=== PATIENT | male | born 1955 | race Caucasian/White ===

== ENCOUNTER 2021-12-05 15:09 | Outpatient (CLI) | payer MEDICARE, BC, SELFPAY ==
--- OUTSIDE RECORDS SUMMARY | 2021-12-05 07:28 | XMS_ITS | Clinical Summary ---
:1955 Author Organization [facility] [place] [address] Care Team Providers Name Role Phone Geovany Hermosillo MD Primary Care Provider Allergies No known active allergies Medications Medication Sig Dispensed Refills Start Date End Date Status IBUPROFEN 200 MG TAB PRN 0 Active ASPIRIN 81 MG TAB, take 1 tablet 0 Active DELAYED RELEASE (81mg) by oral route once daily lisinopril (PRINIVIL; TAKE 1 TABLET 30 tablet 0 01/21/2011 Active ZESTRIL) 40 mg tablet (40 MG) BY ORAL ROUTE ONCE DAILY omeprazole (PRILOSEC) TAKE 1 CAPSULE 30 capsule 0 01/21/2011 Active 20 mg BY MOUTH ONCE capsuleIndications: DAILY BEFORE A Esophageal reflux MEAL. simvastatin (ZOCOR) 40 TAKE 1 TABLET BY 30 tablet 0 01/21/2011 Active mg tabletIndications: MOUTH ONCE DAILY Mixed hyperlipidemia WITH EVENING MEAL. CPAP autoCPAP, heated 1 unit 0 10/14/2012 Ac tive humidifier, mask, headgear, filters and tubing. Pressure: 4-15cm/H2O Length of Need: 99 Active Problems Problem Noted Date Elevated PSA 02/14/2019 DOMONIQUE 04/30/2006 AHI-76 10/14/2012 DOMONIQUE 04/30/2006 AHI-76 10/14/2012 Benign neoplasm of colon 01/03/2009 Overview: Colonoscopy 12/2008 polyp repeat in 5 ye ars Morbid obesity 10/05/2008 Unspecified essential hypertension 07/28/2007 Impaired fasting glucose 07/28/2007 Esophageal reflux 07/28/2007 Special screening for malignant neoplasm of prostate 0 07/28/2007 Mixed hyperlipidemia 04/30/2006 Resolved Problems Problem Noted Date Resolved Date Routine general medical examination at [facility] 008 10/05/2008 facility Unspecified sleep apnea 07/28/2007 10/14/2012 Obesity, unspecified 04/30/2006 10/05/2008 Immunizations Name Administration Dates Next Due Influenza, IIV3 (Age >=3 years) 01/22/2009, 01/30/2006 Td (Age >=7 Years) 08/21/1998 Tdap 07/28/2007 Family History Medical History Relation Name Comments Heart Disease Brother [place] @ 47 yo Heart Disease Father heart attack 198 8 Hypertension Mother Relation Name Status Comments Brother Father Mother Alive Social History Tobacco Use Types Packs/Day Years Used Date Never Smoker Smokeless Tobacco: Never Used Tobacco Cessation: Counseling Given: Yes Alcohol Use Standard Drinks/Week Comments Not Currently 0 (1 standard drink = 0.6 oz pure alcoho l) Minimal Sex Assigned at Date Recorded Not on file Obstetrics History Last Filed Vital Signs Vital Sign Reading Time Taken Comments Blood Pressure 150/88 01/09/2020 1:03 PM ELECTRIC ACCOUNTING MACHINE OPERATOR Pulse 87 01/09/2020 1:03 PM ELECTRIC ACCOUNTING MACHINE OPERATOR Temperature 36.8 ??C (98.3 ??F) 10/14/2012 11:32 AM CDT Respiratory Rate 18 01/09/2020 1:03 PM ELECTRIC ACCOUNTING MACHINE OPERATOR Oxygen Saturation 97% 01/09/2020 1:03 PM ELECTRIC ACCOUNTING MACHINE OPERATOR Inhaled Oxygen - - Concentration Weight 174.5 kg (384 lb 01/09/2020 1:03 PM Pt weighed w ith shoes 12.8 oz) ELECTRIC ACCOUNTING MACHINE OPERATOR on. Height 180.7 cm (5' 11.16) 10/14/2012 11:32 AM CDT Body Mass Index 53.43 10/14/2012 11:32 AM CDT Plan of Treatment Health Maintenance Due Date Last Done Comments COVID-19 vaccine series (#1) 04/08/1956 Depression screening for age 12+ 1966 BMI (ht and wt on same day) for 1972 age 18+ Hepatitis C screening for age 0810/06/1972 18-79 Zoster (shingles) series for age 0810/06/2004 50+ (1 of 2) Colonoscopy through age 75 01/22/2014 01/22/2009, 9 Lipids for age 45-75 05/03/2015 05/02/2010, 04/19/2009, 09/27/2008, Additional history exists Tetanus booster 07/27/2017 07/28/2007, 08/21/1998 Medicare Wellness for age 65+ 10/07/2019 Pneumococcal series for age 65+ (1 10/07/2019 - PCV) Influenza for age 65+ 10/24/2021 01/22/2009, 01/30/2006 Tdap Completed 07/28/2007 Results Not on filefrom Last 3 Months Insurance Payer Benefit Plan / Subscriber ID Effective Dates Phone Addre ss Type Group BLUE CROSS MR BLUE CROSS [id number] 2019-Present [address] [address] [place], [place] [id number] Care Teams Computer Publisher Relationship Specialty Start Date End Date Geovany Hermosillo MD PCP - General Family Practice 10/14/12
[2021-12-05 09:00] LABS: Albumin* 4.5 g/dL (3.3-5.0); Chloride* 99 mmol/L (96-114); Potassium* 4.8 mmol/L (3.6-5.1); Sodium* 141 mmol/L (135-149)
[2021-12-05 09:02] LABS: Carbon Dioxide* 31 mmol/L (20-32); Cholesterol* 171 mg/dL (90-199); Creatinine* 1.3 mg/dL (0.5-1.5); Estimated Glomerular Filt Rate 60 ml/min
[2021-12-05 09:03] LABS: Alanine Aminotransferase* 18 U/L (4-50); Alkaline Phosphatase* 58 U/L (40-150); Aspartate Amino Transferase* 24 U/L (12-35); Bilirubin Total* 1.1 mg/dL (0.1-1.5); Blood Urea Nitrogen* 25 mg/dL (7-30); Calcium* 9.6 mg/dL (8.4-10.6); Glucose* 140 mg/dL (60-115); Total Protein* 7.3 g/dL (6.0-8.3); Triglycerides* 210 mg/dL (40-149)
[2021-12-05 09:04] LABS: HDL Cholesterol* 28 mg/dL (>=40); LDL Cholesterol Calculated 101 mg/dL (<100)
[2021-12-05 09:19] LABS: Creatinine Urine 118.7 mg/dL
[2021-12-05 09:25] LABS: Microalbumin Creatinine Ratio 0 mg/g (0-30); Microalbumin Urine < 1 mg/dL
[2021-12-05 09:39] LABS: PSA Screen* < 0.06 ng/mL (0.10-4.00)
== END 2021-12-05 15:10 | disposition home or self-care (01) ==
PROVIDERS: PCP Family Medicine; Visit Provider Family Medicine
DX: Z00.00 Encounter for general adult medical examination without abnormal findings (principal); E11.9 Type 2 diabetes mellitus without complications; E78.5 Hyperlipidemia, unspecified; C61 Malignant neoplasm of prostate; I10 Essential (primary) hypertension; Z12.5 Encounter for screening for malignant neoplasm of prostate
CPT/HCPCS: 80053; 80061; 82043; 82570; 84153

== ENCOUNTER 2022-06-19 07:16 | Outpatient (CLI) | payer MEDICARE, BC, SELFPAY | END 2022-06-19 07:17 | disposition home or self-care (01) | LOC: OP CLINIC 07:18 | PROVIDERS: PCP Family Medicine; Visit Provider Surgery | DX: Z12.11 Encounter for screening for malignant neoplasm of colon (principal); K63.5 Polyp of colon; Z86.010 Personal history of colon polyps | CPT/HCPCS: 45385; 88305; 99153; J1200; J2250; J3010 ==

== ENCOUNTER 2023-04-14 07:51 | Outpatient (CLI) | payer MEDICARE, BC, SELFPAY ==
--- OUTSIDE RECORDS SUMMARY | 2023-04-15 06:18 | XMS_ITS | Clinical Summary ---
Author Name Unknown Organization [facility] Address [place], [place] [address] Care Team Providers Care Industrial Safety And Health Specialist Name Role Phone Geovany Hermosillo MD Primary Care Provider [phone] Allergies No known active allergies Medications Medication Sig Dispensed Refills Start Date End Date Status IBUPROFEN 200 MG TAB PRN 0 Acti ve ASPIRIN 81 MG TAB, DELAYED RELEASE take 1 tablet (81mg) by oral route once daily 0 Active lisinopril (PRINIVIL; ZESTRIL) 40 mg tablet TAKE 1 TABLET (40 MG) BY ORAL ROUTE ONCE DAILY 30 tablet 0 01/21/2011 Active omeprazole (PRILOSEC) 20 mg capsuleIndications:Eso phageal reflux TAKE 1 CAPSULE BY MOUTH ONCE DAILY BEFORE A MEAL. 30 capsule 0 01/21/2011 Active simvastatin (ZOCOR) 40 mg tabletIndications:Mixe d hyperlipidemia TAKE 1 TABLET BY MOUTH ONCE DAILY WITH EVENING MEAL. 30 tablet 0 01/21/2011 Active CPAP autoCPAP, heated humidifier, mask, headgear, filters and tubing. Pressure: 4-15cm/H2O Length of Need: 99 1 unit 0 10/14/2012 Active Active Problems Problem Noted Date Diagnosed Date Elevated PSA 02/14/2019 DOMONIQUE 04/30/2006 AHI-76 10/14/2012 DOMONIQUE 04/30/2006 AHI-76 10/14/2012 Benign neoplasm of colon 01/03/2009 Overview: Colonoscopy 12/2008 polyp repeat in 5 years Morbid obesity 10/05/2008 Unspecified essential hypertension 07/28/2007 Impaired fasting glucose 07/28/2007 Esophageal reflux 07/28/2007 Special screening for malignant neoplasm of pros richards 07/28/2007 Mixed hyperlipidemia 04/30/2006 Resolved Problems Problem Noted Date Diagnosed Date Resolved Date Routine general medical exam ination at a health care facility 07/28/2007 10/05/2008 Unspecified sleep apnea 07/28/200709/24 Obesity, unspecified 04/30/2006 009 Immunizations Name Administration Dates Next Due Influenza, IIV3 (Age >=3 years) 01/22/2009,01/30 Td (Age >=7 Years) 08/21/1998 Tdap 07/28/2007 Family History Medical History Relation Name Comments Heart Disease Brother [place] @ 47 yo Heart Disease Father heart attack 1 988 Hypertension Mother Relation Name Status Comments Brother Father Mother Alive Social History Tobacco Use Types Packs/Day Years Used Date Smoking Tobacco: Never Smokeless Tobacco: Never Tobacco Cessation:Counseling Given: Yes Alcohol Use Standard Drinks/Week Comments Not Currently 0 (1 standard drink = 0.6 oz pur e alcohol) Minimal Sex and Gender Information Value Date Recorded Sex Assigned at Not on file Gender Identity Not on file Sexual Orientation Not on file Obstetrics History Last Filed Vital Signs Vital Sign Reading Time Taken Comments Blood Pressure 150/88 01/09/2020 1:03 PM PYROTECHNICS PRESS TENDER Pulse 87 01/09/2020 1:03 PM PYROTECHNICS PRESS TENDER Temperature 36.8 ??C (98.3 ??F) 10/14/2012 1 1:32 AM CDT Respiratory Rate 18 01/09/2020 1:03 PM PYROTECHNICS PRESS TENDER Oxygen Saturation 97% 01/09/2020 1:0 3 PM PYROTECHNICS PRESS TENDER Inhaled Oxygen Concentration - - Weight 174.5 kg (384 lb 12.8 oz) 01/09/2020 1:03 PM PYROTECHNICS PRESS TENDER Pt weighed with shoes on. Height 180.7 cm (5' 11.16) 10/14/2012 11:32 AM CDT Body Mass Index 53.43 10/14/2012 11:32 AM CDT Plan of Treatment Health Maintenance Due Date Last Done Comments COVID-19 vaccine series (#1) 04/08/1956 Depression screening for age 12+ 1966 BMI (ht and wt on same day) for age 18+ 1972 Hepatitis C screening for ag e 18-79 1972 Zoster (shingles) series for age 50+ (1 of 2) 2004 Colonoscopy through age 75 01/22/2014 01/22/2009, Lipids for age 45-75 05/03/2015 05/02/2010, 04/19/2009, 09/27/2008, Additional history exists Tetanus booster 07/27/2017 07/28/2007, 08/21/1998 Medicare Wellness for age 65+ 10/07/2019 Pneumococcal series for age 65+ (1 of 1 - PCV) 10/07/2019 Influenza for age 65+ 10/24/2022 01/22/2009, 006 Tdap Completed 07/28/2007 Care Teams Industrial Safety And Health Specialist Relationship Specialty Start Date End Date Geovany Hermosillo MD PCP - General Family Practice 10/14/12
== END 2023-04-14 07:52 | disposition home or self-care (01) ==
LOC: NFLDREF 04-15 06:16
PROVIDERS: PCP Family Medicine; Referring Provider Family Medicine; Visit Provider Family Medicine
DX: E11.9 Type 2 diabetes mellitus without complications (principal); E78.5 Hyperlipidemia, unspecified; C61 Malignant neoplasm of prostate; R97.20 Elevated prostate specific antigen [PSA]
CPT/HCPCS: 80053; 80061; 82043; 82570; G0103

== ENCOUNTER 2023-07-01 13:18 | Outpatient (CLI) | payer MEDICARE, BC, SELFPAY ==
--- OUTSIDE RECORDS SUMMARY | 2023-07-01 13:22 | XMS_ITS | Clinical Summary ---
Author Name Unknown Organization [facility] Address [place], [place] [address] Care Team Providers Care Green Building Materials Designer Name Role Phone Geovany Hermosillo MD Primary Care Provider [phone] Allergies No known active allergies Medications Medication [...] History Relation Name Comments Heart Disease Brother [place] @ 47 yo Heart Disease Father heart [...] Comments Blood Pressure 150/88 01/09/2020 1:03 PM ATTENDANT LODGING FACILITIES Pulse 87 01/09/2020 1:03 PM ATTENDANT LODGING FACILITIES Temperature 36.8 ??C (98.3 ??F) 10/14/2012 1 1:32 AM CDT Respiratory Rate 18 01/09/2020 1:03 PM ATTENDANT LODGING FACILITIES Oxygen Saturation 97% 01/09/2020 1:0 3 PM ATTENDANT LODGING FACILITIES Inhaled Oxygen Concentration - - Weight 174.5 kg (384 lb 12.8 oz) 01/09/2020 1:03 PM ATTENDANT LODGING FACILITIES Pt weighed with shoes on. Height 180.7 cm (5' 11.16) 10/14/2012 11:32 AM CDT Body Mass Index 53.43 10/14/2012 11:32 AM CDT Plan of Treatment Health Maintenance Due Date Last Done Comments Depression screening for age 12+ 1966 BMI [...] 65+ (1 of 1 - PCV) 10/07/2019 COVID-19 vaccine series (1 - 2022-24 season) 2022 Influenza for age 65+ 10/25/2023 01/22/2009, 006 Tdap Completed 07/28/2007 Procedures Procedure Name Priority Date/Time Associated Diagnosis Comments LIPID PANEL W REFLEX MEASURED LDL Routine 05/02/2010 7:59 AM ATTENDANT [employer]ODGING [employer]ACILIT[employer] HYPERLIPIDEMIA MIXED from Last 3 Months or Most Recently Relevant to Health Maintenance Results * (ABNORMAL) LIPID PANEL W REFLEX MEASURED LDL (05/02/2010 7:59 AM ATTENDANT [employer]GING [employer]ITIES) CHOLESTEROL,TOTAL 169 110 - 199 mg/dL [facility] TRIGLYCERIDES 134 <150 mg/dL [facility] HDL CHOLESTEROL 34(L) >40 mg/dL [facility] CHOL/HDL RATIO 4.97(H) <4.51 [facility] LDL CHOLESTEROL 108 <131 mg/dL [facility] PATIENT STATUS Fasting [facility] Blood specimen (specimen) BLOOD SPECIMEN / Unknown 05/02/2010 7:59 AM ATTENDANT [employer] 05/02/2010 7:53 AM ATTEND[employer] Ferny Piña MD CHEMISTRY [facility] [address] [place] [address] from Last 3 Months or Most Recently Relevant to Health Maintenance Care Teams Green Building Materials Designer Relationship Specialty Start Date End Date Geovany Hermosillo MD PCP - General Family Practice 10/14/12
== END 2023-07-01 13:19 | disposition home or self-care (01) ==
LOC: NFLDREF 13:19
PROVIDERS: PCP Family Medicine; Visit Provider Family Medicine
DX: I10 Essential (primary) hypertension (principal)
CPT/HCPCS: 80048

== ENCOUNTER 2023-07-14 07:26 | Day surgery (SDC) | payer MEDICARE, BC, SELFPAY ==
[2023-07-14] VITALS (23 sets, daily range): BP systolic 104–162; BP diastolic 63–105; PULSE 60–83; RESP 14–22; TEMP 35.7–36.7; O2SAT 91–97; BMI 51.0
--- OUTSIDE RECORDS SUMMARY | 2023-07-14 07:28 | XMS_ITS | Clinical Summary ---
Author Name Unknown Organization [facility] Address [place], [place] [address] Care Team Providers Care Director Underwriter Sales Name Role Phone Geovany Hermosillo MD Primary Care Provider [phone] Allergies No known active allergies Medications Medication [...] History Relation Name Comments Heart Disease Brother [place] @ 47 yo Heart Disease Father heart [...] Comments Blood Pressure 150/88 01/09/2020 1:03 PM DETECTIVE NARCOTICS AND VICE Pulse 87 01/09/2020 1:03 PM DETECTIVE NARCOTICS AND VICE Temperature 36.8 ??C (98.3 ??F) 10/14/2012 1 1:32 AM CDT Respiratory Rate 18 01/09/2020 1:03 PM DETECTIVE NARCOTICS AND VICE Oxygen Saturation 97% 01/09/2020 1:0 3 PM DETECTIVE NARCOTICS AND VICE Inhaled Oxygen Concentration - - Weight 174.5 kg (384 lb 12.8 oz) 01/09/2020 1:03 PM DETECTIVE NARCOTICS AND VICE Pt weighed with shoes on. Height 180.7 [...] REFLEX MEASURED LDL Routine 05/02/2010 7:59 AM DETECTIVE NARCOTICS AND VICE HYPERLIPIDEMIA MIXED from Last 3 Months or Most Recently Relevant to Health Maintenance Results * (ABNORMAL) LIPID PANEL W REFLEX MEASURED LDL (05/02/2010 7:59 AM DETECTIVE NARCOTICS AND VICE) CHOLESTEROL,TOTAL 169 110 - 199 mg/dL [facility] TRIGLYCERIDES 134 <150 mg/dL [facility] HDL CHOLESTEROL 34(L) >40 mg/dL [facility] CHOL/HDL RATIO 4.97(H) <4.51 [facility] LDL CHOLESTEROL 108 <131 mg/dL [facility] PATIENT STATUS Fasting [facility] Blood specimen (specimen) BLOOD SPECIMEN / Unknown 05/02/2010 7:59 AM DETECTIVE NARCOTICS AND VICE 05/02/2010 7:53 AM DETECTIVE NARCOTICS AND VICE Ferny Piña MD CHEMISTRY [facility] [address] [place] [address] from Last 3 Months or Most Recently Relevant to Health Maintenance Care Teams Director Underwriter Sales Relationship Specialty Start Date End Date Geovany Hermosillo MD PCP - General Family Practice 10/14/12
[2023-07-14] MEDS: CELECOXIB 200 MG CAPSULE PO (07:40)
[2023-07-14] MEDS: OXYCODONE (CR) 10 MG TAB.ER.12H PO (07:40)
[2023-07-14] MEDS: ACETAMINOPHEN 500 MG TABLET 1000 MG PO ×3 (07:40→20:13)
[2023-07-14] MEDS: LACTATED RINGERS 1000 ML 1,000 ML 100 ML IV ×2 (08:09→10:10)
[2023-07-14] MEDS: SODIUM CHLORIDE 0.9 % (FLUSH) 10 ML SYRINGE IVF (08:09)
--- NOTE | 2023-07-14 08:31 | SUR.PREOP ---
TIME?OUT:?0838 PT/RN/MDA?VERIFICATION?OF?SURGICAL?SITE Left Knee,?PROCEDURE Nerve Block,?AND?CONSENT OBTAINED?PRIOR?TO?INVASIVE?PROCEDURE.
[2023-07-14] MEDS: fentaNYL 100 MCG/2 ML inj IVP (08:39)
[2023-07-14] MEDS: MIDAZOLAM HCL 1 MG/ML inj IVP (08:39)
--- NOTE | 2023-07-14 08:45 | W.PM.NB ---
Nerve Block Nerve Block Time Seen by Provider: 08:42 Date Seen: 07/14/23 Type of block requested by surgeon for post-operative analgesia: adductor canal Side: left Time out performed: Yes Verification of patient name: Yes Verification of date of : Yes Site marking: site marked Name of person performing procedure: Jose Continuous monitoring Was continuous monitoring of O2 sat, B/P, electronic device monitor, recorded every 15 minutes?: Yes Procedure Checklist: sterile prep, needles and gloves Ultrasound guided. Images saved: Yes Medications given in 5ml increments after negative aspiration: Ropivicaine %: 0.5 mL: 20 Needle gauge: 20 Decadron (mg): 10 Precedex (mcg): 25 Patient tolerated procedure well: Yes Additional comments: Needle noted adjacent to nerve Block Charges Block Charge (with Pro Fee): Femoral Nerve Use of Ultrasound Machine for Block: Yes- US Guidance/pain block
--- NOTE | 2023-07-14 08:46 | W.PM.NB ---
Nerve Block Nerve Block Time Seen by Provider: 08:42 Date Seen: 07/14/23 Type of block requested by surgeon for post-operative analgesia: geniculars Side: left Time out performed: Yes Verification of patient name: Yes Verification of date of : Yes Site marking: site marked Name of person performing procedure: Jose Continuous monitoring Was continuous monitoring of O2 sat, B/P, special education kindergarten teacher, recorded every 15 minutes?: Yes Procedure Checklist: sterile prep, needles and gloves Medications given in 5ml increments after negative aspiration: Ropivicaine %: 0.5 mL: 9 Needle gauge: 25 Patient tolerated procedure well: Yes Block Charges Block Charge (with Pro Fee): Genicular Nerve Block Use of Ultrasound Machine for Block: No
--- NOTE | 2023-07-14 08:46 | W.ANESCHARGE ---
Anesthesia Charges Start Date/Time Anesthesia Start Date: 07/14/23 Anesthesia Start Time: 09:25 Stop Date/Time Anesthesia Stop Date: 07/14/23 Anesthesia Stop Time: 12:32
[2023-07-14] MEDS: CEFAZOLIN 2 GM INJ IVP (10:03)
[2023-07-14] MEDS: TRANEXAMIC ACID 100 MG/ML INJ 1000 MG IV (10:03)
--- NOTE | 2023-07-14 11:30 | XR_ITS ---
Patient: YOSELYN TOVAR Facility:?[facility] Patient ID:?[id number] Site Patient ID:?[id number]. Site :?[id number] Study:?XRay-Knee Left POST OP-07/14/2023 12:49:57 PM Ordering Physician:JESSEE Final Report: INDICATION: Postop left total knee. TECHNIQUE: Two views of the left knee. FINDINGS: New left TKA. Components appear well seated. Expected adjacent postop soft tissue air. Dictated by Boston Bobby MD @ 07/15/2023 8:27:26 AM Signed by:?Boston Bobby MD @07/15/2023 8:27:26 AM (Electronic Signature)
--- NOTE | 2023-07-14 11:32 | PM.ORPRC ---
Procedure Note Date of procedure: 07/14/23 Procedure: PREOPERATIVE DIAGNOSIS: Left knee osteoarthritis POSTOPERATIVE DIAGNOSIS: Left knee osteoarthritis NAME OF OPERATION: Left total knee arthroplasty SURGEON: Marv Chau MD CURATORIAL ASSISTANT: Lianet Oviedo PA-C, Elsie Zaragoza PA-C ANESTHESIA: Spinal ESTIMATED BLOOD LOSS: 5 mL COMPLICATIONS: None SPECIMENS: None DRAINS: None PREOPERATIVE ANTIBIOTICS: Ancef 3 grams, antibiotic impregnated cement IMPLANTS: 1. J&J Attune revision CRS # 8 posterior stabilized femur with a 14 mm x 50 mm cemented stem 2. # 9 revision CRS fixed-bearing tibia with a 14 mm x 50 mm cemented stem 3. # 8 posterior stabilized, 5 mm fixed-bearing polyethylene 4. 41 patella INDICATIONS: The patient is a 67-year-old with a longstanding history of severe, unrelenting left knee pain secondary to end-stage (grade IV) left knee osteoarthritis. Despite appropriate nonoperative management, including activity modification, anti-inflammatories, [id number] pain medication, bracing, physical therapy, and injections they continue to have pain and disability. Operative intervention was offered. The risks, benefits and expected outcomes were discussed in detail. These included but were not limited to: Infection, bleeding, injury to blood vessel or nerve, venous thromboembolism. All questions were answered to their satisfaction. Use of an sales service assistant was necessary throughout the case for patient positioning and safety, soft tissue retraction, and closure. A modifier 22 should be added to this case. The patient's weight of 170 kg with a BMI of 51 made exposure very difficult. This required the use of 2 assistants and stems on both sides of the joint to reduce the risk of aseptic loosening. Therefore, there was significant increase in time and cost to complete the case. PROCEDURE: Spinal anesthesia was administered. The patient was placed supine on the operating table. The sales service assistant made sure the patient was positioned appropriately. The lower extremity was prepped and draped in the usual sterile fashion. The limb was exsanguinated with the Erick bandage. The pneumatic tourniquet was inflated to 300 mmHg. A standard anterior incision was made with the knee in flexion. Subcutaneous dissection was sharply taken through fascial layer #1. Full-thickness medial and lateral flaps were elevated. The sales service assistant retracted the soft tissues and protected them throughout the case. A standard subvastus approach was made. The patella was everted. The infrapatellar fat pad was preserved. The menisci and cruciate ligaments were sharply d?brided. Marginal osteophytes were d?brided with the rongeur. The drill was used to penetrate the femoral canal. The canal was aspirated and irrigated with pulse lavage. The intramedullary femoral guide was placed for a 5-degree valgus cut, removing 10 mm off the distal femur. The saw was used to make the cut. Whitesides line and the trans epicondylar axis were marked. The femoral sizing guide was pinned onto the distal femur. Three degrees of external rotation nicely parallels the transepicondylar axis. Pins were placed for posterior referencing. The four-in-one cutting guide was pinned onto the distal femur. The anterior, posterior, and chamfer cuts were made. The sales service assistant protected the collateral ligaments. The revision trial was placed. The box cuts were made. The drill was used x2. The stemmed, boxed trial was placed and was an excellent fit. Attention was then turned to the proximal tibia. The extramedullary tibial guide was placed for a neutral varus/valgus cut with 5 degrees of posterior slope, removing 2 mm based off the medial tibial surface. The sales service assistant protected the collateral ligaments and the neurovascular bundle. The saw was used to make the cut. Trial components were placed. The knee was nicely balanced in both flexion and extension. The trial components were removed. The tray was placed in appropriate rotation, parallel to our tibial cutting pins. It was pinned by the sales service assistant and the drill x2 was used. The stemmed tibial trial was placed. The punch was used. The tray was removed. The punch was used again. Attention was then turned to the patella. Minto patellar thickness was 27 mm. The lobster claw resection guide was used with the 9.5 mm smooth. The saw was used to make the cut. Drill holes were made by the sales service assistant. The trial was placed and was an excellent fit. Cancellous surfaces were irrigated with pulse lavage and thoroughly dried by the sales service assistant. We cemented the tibial component, then the femoral component. We impacted the 5 mm polyethylene onto the tibial tray. The knee was brought into full extension. We then cemented the patellar component. Excessive cement was removed. The cement was allowed to harden. The knee was taken through a range of motion and was found to be nicely balanced in both flexion and extension. The patella tracks centrally. The sales service assistant did a three minute dilute Betadine solution soak. The sales service assistant irrigated the wound with 3 liters of normal saline via pulse lavage. The sales service assistant reapproximated the extensor mechanism with #1 Vicryl in an interrupted [id number] fashion. The sales service assistant then ran the extensor mechanism with a #1 PDO Stratafix. The sales service assistant closed the subcutaneous tissues with a 3-0 Stratafix and the skin with a running 3-0 Stratafix in a subcuticular fashion. Glue was used to seal the skin. The sales service assistant placed a dry dressing. Sponge and needle counts were correct x2. The patient tolerated the procedure well. There were no apparent complications. They were carefully transferred to the hospital bed and taken to the postanesthesia care unit in satisfactory condition. PLAN: The patient will be mobilized with physical therapy. Aspirin will be used for DVT prophylaxis. They will be discharged to home once medically appropriate.
--- NOTE | 2023-07-14 12:34 | W.ANESCHARGE ---
Anesthesia Charges Start Date/Time Anesthesia Start Date: 07/14/23 Anesthesia Start Time: 09:25 Stop Date/Time Anesthesia Stop Date: 07/14/23 Anesthesia Stop Time: 12:32
--- NOTE | 2023-07-14 14:46 | P.IMCN_ITS ---
Date of Consult Consult date: 07/14/23 Requesting Physician: Orthopedics Primary Care Provider: Geovany Hermosillo MD Consult Narrative Narrative: HOSPITALIST CONSULT NAME OF OPERATION: Left total knee arthroplasty SURGEON: Marv Chau MD ANESTHESIA: Spinal ESTIMATED BLOOD LOSS: 5 mL COMPLICATIONS: None The hospital medicine team was asked by the orthopedic surgery team to manage the patient's diabetes, HTN. There have been no perioperative complications. Updated and reviewed the active medical problems, past medical history, past surgical history, social history, allergies and medications in our electronic EMR. PHYSICAL EXAM: CODE STATUS: FULL CODE CONSTITUTIONAL: Conversive, good historian. A/O. Knows setting and context. VITAL SIGNS: see record. HEENT: Normocephalic, atraumatic. PERRL, EOMI, conjunctivae pink, no scleral icterus. Ears and nose externally normal. Pharynx normal. NECK: No JVD. No carotid bruit, no thyromegaly, no adenopathy. CHEST: Clear to auscultation bilaterally HEART: S1 and S2 normal. ABDOMEN: Flat, soft, nontender. Normal bowel sounds. Moderately obese. EXTREMITIES: No edema. MUSCULOSKELETAL: SDI intact to the left knee NEURO: Cranial nerves intact. Mentation normal. Normal affect. SKIN: No rashes, petechiae, concerning changes PSYCHIATRIC: Mentation normal. INVESTIGATIONS: EMR Reviewed; Pre-OP Reviewed DISPOSITION: DVT: Agree with Ortho team decision GI: PO intake [facility] Medical History (Updated 07/14/23 @ 15:14 by Kimberley Galaviz MD) Morbid obesity with BMI of 50.0-59.9, adult ?E66.01 - Morbid (severe) obesity due to excess calories (ICD-10) ?Z68.43 - Body mass index [BMI] 50.0-59.9, adult (ICD-10) Polyp of colon (03/12/11) ?K63.5 - Polyp of colon (ICD-10) Malignant neoplasm of prostate ?C61 - Malignant neoplasm of prostate (ICD-10) Hyperlipidemia ?E78.5 - Hyperlipidemia, unspecified (ICD-10) Obstructive sleep apnea (03/03/11) ?G47.33 - Obstructive sleep apnea (adult) (pediatric) (ICD-10) Sprain of ankle ?S93.409A - Sprain of unspecified ligament of unspecified ankle, initial encounter (ICD-10) Surgical History (Updated 07/14/23 @ 14:56 by Kimberley Galaviz MD) Status post total left knee replacement ?Z96.652 - Presence of left artificial knee joint (ICD-10) S/P vasectomy ?Z98.52 - Vasectomy status (ICD-10) Social History (Updated 04/20/23 @ 10:08 by Esther Roberts ~ CT[facility]) Narrative: SOCIAL HISTORY: 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 He is not sexually active. He went back to lifting weights and doing walking over the past month but he admits there was a long period of time where he was not doing these things. Exercises not been great in the last year. He still enjoys woodworking and does quite a bit of this. He has a close friend who has a heated groin space that he has his equipment in. They both enjoy woodworking. HABITS: No tobacco, alcohol, recreational drug use. FAMILY HISTORY: Unchanged. Mother at 85. Father of myocardial infarction in his 60s. Grandparents with heart problems. Brother with non fatal myocardial infarction in his 40s. He was smoker. What is your current living situation?: I presently have a place to live Problems where you live: no known problems In the past 12 months, utilities in danger of being shut off: no In past 12 months, lack of transportation kept you from medical appts, meetings, work, or getting things needed for daily living: no In the past 12 mos, have been you worried that your food would run out before you had money to buy more?: never true In the past 12 mos, the food you bought just didn't last and you didn't have money to buy more?: never true Smoking Status: Never smoker How often do you have a drink containing alcohol: never AUDIT-C Alcohol total score: 0 Non-prescribed substance use: denies use Caffeine: Yes How often does anyone, including family, friends and others, physically hurt you : never How often does anyone, including family, friends and others, insult or talk down to you: never How often does anyone, including family, friends and others, threaten you with harm: never How often does anyone, including family, friends and others, scream or curse at you: never Little interest or pleasure in doing things: not at all Feeling down, depressed, or hopeless: not at all Meds Home Medications and Allergies Home Medications Medication Instructions Recorded Confirmed Type aspirin 81 mg tablet,delayed 81 mg PO QDAY 10/30/21 07/14/23 History release Allergies Allergy/AdvReac Type Severity Reaction Status Date / Time No Known Allergies Allergy Unknown Verified 07/14/23 07:51 Exam Const: Vital Signs, click to edit/add: Vital Signs - 24 hr 07/14/23 08:04 07/14/23 08:39 07/14/23 08:45 Temperature 98.1 F Pulse Rate 80 80 78 Respiratory Rate 16 16 16 Blood Pressure 153/100 H 162/100 H 126/100 H Pulse Oximetry 94 96 96 Oxygen Delivery Me thod Room Air Nasal Cannula Nasal Cannula Oxygen Flow Rate 2 2 07/14/23 12:27 07/14/23 12:35 07/14/23 12:40 Temperature 97.4 F L Pulse Rate 78 75 72 Respiratory Rate 18 20 18 Blood Pressure 109/70 104/70 110/70 Pulse Oximetry 94 93 93 Oxygen Delivery Me thod Room Air Room Air Room Air Oxygen Flow Rate 07/14/23 12:45 07/14/23 12:50 07/14/23 12:55 Temperature 97.3 F L Pulse Rate 74 67 65 Respiratory Rate 20 22 18 Blood Pressure 108/64 119/67 120/73 Pulse Oximetry 92 93 94 Oxygen Delivery Me thod Room Air Room Air Room Air Oxygen Flow Rate 07/14/23 13:00 07/14/23 13:10 07/14/23 13:15 Temperature 97.4 F L 96.4 F L 96.6 F L Pulse Rate 67 68 63 Respiratory Rate 20 14 14 Blood Pressure 121/71 125/63 110/79 Pulse Oximetry 94 93 94 Oxygen Delivery Me thod Room Air Room Air Oxygen Flow Rate 07/14/23 13:30 07/14/23 13:45 07/14/23 14:00 Temperature 97.3 F L 96.8 F L 96.2 F L Pulse Rate 63 60 66 Respiratory Rate 16 16 Blood Pressure 112/69 124/68 118/71 Pulse Oximetry 92 91 91 Oxygen Delivery Me thod Room Air Room Air Room Air Oxygen Flow Rate Assessment and Plan Assessment and plan (1) Status post total left knee replacement: Problem comment: 07/14/23 [facility] medicine team is happy to follow the patient through to discharge. We will hold antihypertensive postoperatively. We expect a benign postoperative course. Status: Acute (2) DOMONIQUE on CPAP: Problem comment: -continue home use. Status: Acute (3) Type 2 diabetes mellitus: Problem comment: A1C 6.8 on 04/14/23 diet controlled ACHS accuchecks Status: Acute (4) Hypertension: Problem comment: -lisinopril and HCTZ therapy + aspirin -will hold post-op day 1 Status: Acute (5) Gastroesophageal reflux: Status: Acute (6) Morbid obesity with BMI of 50.0-59.9, adult: Status: Acute
--- NOTE | 2023-07-14 16:45 | PC.NURSE ---
Shift Summary: Patient pleasant and cooperative, worked with PT and is up in chair. Vitals stable and WNL, maintaining o2 >90% on RA. Denies pain, ice over left knee. Dressing dry and intact. Denies nausea, has not had meal yet just liquids. Offered bathroom however patient states it is normal for him to go long periods before needing to void. Lung sounds clear.
[2023-07-14] MEDS: OXYCODONE 5 MG TABLET PO (17:12)
[2023-07-14] MEDS: LACTATED RINGERS 1000 ML 1,000 ML 75 ML IV (17:13)
[2023-07-14] MEDS: CEFAZOLIN 3 GM in 0.9 % SODIUM CHLORIDE Mini-bag 100 ML IVPB (17:45)
[2023-07-14] MEDS: SENNOSIDES 1 TAB TABLET 2 TAB PO (20:13)
[2023-07-14] MEDS: ASPIRIN 81 MG TABLET EC PO (20:14)
[2023-07-14] MEDS: SIMVASTATIN 40 MG TABLET PO (20:14)
[2023-07-15] MEDS: CEFAZOLIN 3 GM in 0.9 % SODIUM CHLORIDE Mini-bag 100 ML IVPB (01:12)
[2023-07-15 01:20] VITALS: BP 95/66; PULSE 69; RESP 18; TEMP 36.5; O2SAT 92
[2023-07-15 03:00] VITALS: BP 119/69; PULSE 65; RESP 18; TEMP 36.4; O2SAT 92
[2023-07-15] MEDS: ACETAMINOPHEN 500 MG TABLET 1000 MG PO ×2 (03:00→08:56)
[2023-07-15 06:22] LABS: Basophils Percent Auto 0.1 % (0.0-3.0); Hematocrit 43.7 % (37.0-53.0); Hemoglobin* 14.3 gm/dL (13.5-17.5); Immature Granulocytes Pct Auto 0.1 %; Lymphocytes Percent Auto 7.4 % (20-44); Mean Corpuscular HGB Conc 33 gm/dL (32-36); Mean Corpuscular Hemoglobin 29 pg (26-34); Mean Corpuscular Volume 90 fL (80-100); Monocytes Percent Auto 8.7 % (0.0-11.0); Neutrophils Percent Auto 83.7 % (42.0-72.0); Platelet Count* 228 K/uL (140-440); RDW Coefficient of Variation % 14.2 % (11.5-15.5); Red Blood Count 4.86 m/uL (4.30-5.90); White Blood Count* 11.72 K/uL (4.50-11.00)
[2023-07-15 06:32] LABS: Slide Review Reflex No
[2023-07-15 06:36] LABS: INR 1.02 (0.91-1.10)
[2023-07-15 06:37] LABS: Sodium* 137 mmol/L (135-149)
[2023-07-15 06:38] LABS: Potassium* 4.3 mmol/L (3.6-5.1)
[2023-07-15 06:41] LABS: Blood Urea Nitrogen* 30 mg/dL (7-30); Creatinine* 1.3 mg/dL (0.5-1.5); Est. Creatinine Clearance* 59.69; Estimated Glomerular Filt Rate 60 ml/min
--- NOTE | 2023-07-15 06:45 | PC.NURSE ---
19-07: pleasant and cooperative. SBA with gb and walker. rating pain 2-3/10, tolerable per pt. VSS. Dressing CDI, active ice on.
[2023-07-15 07:44] VITALS: BP 139/75; PULSE 79; RESP 14; TEMP 37.4; O2SAT 94
[2023-07-15] MEDS: OXYCODONE 5 MG TABLET PO (08:03)
--- NOTE | 2023-07-15 08:14 | PM.ORPN ---
Subjective Subjective Time Seen by Provider: 08:14 Date Seen: 07/15/23 Principal diagnosis: Status post left knee replacement Interval history: Indra is doing well. He is ambulating well in the room this morning. his dressing is not sticking well. He will discharge to home today. He tolerated oxycodone well. He uses a CPAP machine when sleeping. Ortho Exam Narrative Exam Narrative: Alert and oriented x3. Patient is in no acute distress. Converses without labored breathing. Hearing is grossly intact. Ambulates with a Walker. Examination of the left knee shows the dressing is not adhered to his leg at the top and bottom. Dressing is replaced. No erythema or warmth or sign of infection. Minimal edema. CMS intact left lower extremity. Good quad strength. Able to straight leg raise in a supine position. I watched him ambulate in his room and this went very well for him. Calves are soft and nontender. Const Vital Signs, click to edit/add: Vital Signs - 24 hr 07/14/23 08:39 07/14/23 08:45 07/14/23 12:27 Temperature 97.4 F L Pulse Rate 80 78 78 Pulse Rate [Pulse Oximeter] Respiratory Rate 16 16 18 Blood Pressure 162/100 H 126/100 H 109/70 Blood Pressure [Left Arm] Pulse Oximetry 96 96 94 Oxygen Delivery Method Nasal Cannula Nasal Cannula Room Air Oxygen Flow Rate 2 2 07/14/23 12:35 07/14/23 12:40 07/14/23 12:45 Temperature 97.3 F L Pulse Rate 75 72 74 Pulse Rate [Pulse Oximeter] Respiratory Rate 20 18 20 Blood Pressure 104/70 110/70 108/64 Blood Pressure [Left Arm] Pulse Oximetry 93 93 92 Oxygen Delivery Method Room Air Room Air Room Air Oxygen Flow Rate 07/14/23 12:50 07/14/23 12:55 07/14/23 13:00 Temperature 97.4 F L Pulse Rate 67 65 67 Pulse Rate [Pulse Oximeter] Respiratory Rate 22 18 20 Blood Pressure 119/67 120/73 121/71 Blood Pressure [Left Arm] Pulse Oximetry 93 94 94 Oxygen Delivery Method Room Air Room Air Room Air Oxygen Flow Rate 07/14/23 13:10 07/14/23 13:15 07/14/23 13:30 Temperature 96.4 F L 96.6 F L 97.3 F L Pulse Rate 68 63 63 Pulse Rate [Pulse Oximeter] Respiratory Rate 14 14 Blood Pressure 125/63 110/79 112/69 Blood Pressure [Left Arm] Pulse Oximetry 93 94 92 Oxygen Delivery Method Room Air Room Air Oxygen Flow Rate 07/14/23 13:45 07/14/23 14:00 07/14/23 14:30 Temperature 96.8 F L 96.2 F L 96.7 F L Pulse Rate 60 66 73 Pulse Rate [Pulse Oximeter] Respiratory Rate 16 16 16 Blood Pressure 124/68 118/71 138/81 Blood Pressure [Left Arm] Pulse Oximetry 91 91 93 Oxygen Delivery Method Room Air Room Air Room Air Oxygen Flow Rate 07/14/23 15:00 07/14/23 15:15 07/14/23 16:32 Temperature 96.8 F L 96.8 F L Pulse Rate 83 63 Pulse Rate [Pulse Oximeter] Respiratory Rate 16 18 Blood Pressure 142/105 H 120/66 Blood Pressure [Left Arm] Pulse Oximetry 91 91 95 Oxygen Delivery Method Room Air Room Air Room Air Oxygen Flow Rate 07/14/23 17:08 07/14/23 18:05 07/14/23 19:40 Temperature 97.2 F L 97.2 F L 97.3 F L Pulse Rate 72 77 Pulse Rate [Pulse Oximeter] 80 Respiratory Rate 18 18 18 Blood Pressure 145/87 H 124/74 Blood Pressure [Left Arm] 122/82 Pulse Oximetry 92 97 96 Oxygen Delivery Method Room Air Room Air Room Air Oxygen Flow Rate 07/14/23 23:00 07/14/23 23:00 07/14/23 23:00 Temperature 97.4 F L Pulse Rate Pulse Rate [Pulse Oximeter] 74 74 Respiratory Rate 18 18 18 Blood Pressure Blood Pressure [Left Arm] 132/81 Pulse Oximetry 94 94 Oxygen Delivery Method Room Air Room Air Oxygen Flow Rate 07/15/23 01:20 07/15/23 03:00 Temperature 97.7 F 97.6 F Pulse Rate Pulse Rate [Pulse Oximeter] 69 65 Respiratory Rate 18 18 Blood Pressure Blood Pressure [Left Arm] 95/66 119/69 Pulse Oximetry 92 92 Oxygen Delivery Method CPAP CPAP Oxygen Flow Rate Assessment and Plan Assessment and plan (1) Status post total left knee replacement: Problem details: 07/14/23 [facility] Status: Acute Assessment and Plan: Plan for discharge is today to home if they meet discharge criteria. DVT prophylaxis includes aspirin 81 mg twice daily x1 month, Compression stockings as needed for swelling. Frequent ambulation, every hour throughout the day. Remove dressing in 1 week. Observe wound and phone Orthopedics with any questions or concerns Return to clinic in 1 week for a wound check Return to clinic in 6 weeks with surgeon Minimize narcotic use. Wean off and discontinue soon as possible. Activities as tolerated. No strenuous activity. Outpatient physical therapy as scheduled. Ice and elevate the operative extremity. No restriction on ice.
[2023-07-15] MEDS: SENNOSIDES 1 TAB TABLET 2 TAB PO (08:56)
[2023-07-15] MEDS: OMEPRAZOLE 20 MG CAPSULE DR PO (08:56)
[2023-07-15] MEDS: ASPIRIN 81 MG TABLET EC PO (08:57)
--- NOTE | 2023-07-15 11:10 | PC.NURSE ---
Discharge: Patient pleasant and cooperative. Patient vitally stable, lungs clear, BS WNL, IV removed, catheter intact. Patient rates left knee pain 3/10, 10 mg oxy given once prior to therapy. Left knee dressing C/D/I, no pitting edema present. Patient 1 assist, walker, gb. Patient urinating well and tolerating regular diet. Patient signed belongings sheet and discharge form. Patient and spouse had no further questions regarding discharge information. Patient left the floor to home by wheelchair with belongings at 1107.
== END 2023-07-15 11:07 | disposition home or self-care (01) ==
LOC: OR 07:26 → MEDSURG 07:28
PROVIDERS: PCP Family Medicine; Visit Provider Orthopaedic Surgery
PROC: (CPT 27447; principal; 2023-07-14 09:15)
DX: M17.12 Unilateral primary osteoarthritis, left knee (principal); G89.18 Other acute postprocedural pain; I10 Essential (primary) hypertension; E11.9 Type 2 diabetes mellitus without complications; E66.01 Morbid (severe) obesity due to excess calories; Z68.43 Body mass index [BMI] 50.0-59.9, adult; E78.5 Hyperlipidemia, unspecified; G47.33 Obstructive sleep apnea (adult) (pediatric); K21.9 Gastro-esophageal reflux disease without esophagitis
CPT/HCPCS: 27447; 01402; 36415; 64447; 64454; 73560; 76942; 82565; 82962; 84132; 84295; 84520; 85025; 85610; 97110; 97116; 97161; 97165; 97530; 97535; A9270; C1776; J0690; J1100; J2250; J2405; J2704; J2795; J3010; J7120

== ENCOUNTER 2023-07-27 00:39 | Outpatient (CLI) | payer MEDICARE, BC, SELFPAY ==
--- OUTSIDE RECORDS SUMMARY | 2023-08-01 10:41 | XMS_ITS | Clinical Summary ---
Author Organization [facility] Address [place], [place] [address] Care Team Providers Care Water Hydrant Installer Name Role Phone Geovany Heromsillo MD Primary Care Provider [phone] Allergies No known active allergies Medications Medication [...] History Relation Name Comments Heart Disease Brother [place] @ 47 yo Heart Disease Father heart [...] Comments Blood Pressure 150/88 01/09/2020 1:03 PM COGNOS BI DEVELOPER Pulse 87 01/09/2020 1:03 PM COGNOS BI DEVELOPER Temperature 36.8 ??C (98.3 ??F) 10/14/2012 1 1:32 AM CDT Respiratory Rate 18 01/09/2020 1:03 PM COGNOS BI DEVELOPER Oxygen Saturation 97% 01/09/2020 1:0 3 PM COGNOS BI DEVELOPER Inhaled Oxygen Concentration - - Weight 174.5 kg (384 lb 12.8 oz) 01/09/2020 1:03 PM COGNOS BI DEVELOPER Pt weighed with shoes on. Height 180.7 [...] REFLEX MEASURED LDL Routine 05/02/2010 7:59 AM COGNOS BI DEVELOPER HYPERLIPIDEMIA MIXED from Last 3 Months or Most Recently Relevant to Health Maintenance Results * (ABNORMAL) LIPID PANEL W REFLEX MEASURED LDL (05/02/2010 7:59 AM COGNOS BI DEVELOPER) CHOLESTEROL,TOTAL 169 110 - 199 mg/dL [facility] TRIGLYCERIDES 134 <150 mg/dL [facility] HDL CHOLESTEROL 34(L) >40 mg/dL [facility] CHOL/HDL RATIO 4.97(H) <4.51 [facility] LDL CHOLESTEROL 108 <131 mg/dL [facility] PATIENT STATUS Fasting [facility] Blood specimen (specimen) BLOOD SPECIMEN / Unknown 05/02/2010 7:59 AM COGNOS BI DEVELOPER 05/02/2010 7:53 AM [employer]GNOS BI DEVELOPER Ferny Piña MD CHEMISTRY [facility] [address] [place], [place] [id number] from Last 3 Months or Most Recently Relevant to Health Maintenance Care Teams Water Hydrant Installer Relationship Specialty Start Date End Date Geovany Hermosillo MD PCP - General Family Practice 10/14/12
== END 2023-07-27 00:40 | disposition home or self-care (01) ==
LOC: AMB 08-01 10:39
PROVIDERS: PCP Family Medicine; Visit Provider Family Medicine
DX: R53.1 Weakness (principal)
CPT/HCPCS: A0998

== ENCOUNTER 2023-07-28 07:10 | Emergency (ER) | payer MEDICARE, BC, SELFPAY ==
[2023-07-28] VITALS (24 sets, daily range): BP systolic 92–111; BP diastolic 50–62; PULSE 70–92; RESP 24; TEMP 36.9; O2SAT 90–96; BMI 48.8
--- NOTE | 2023-07-28 07:16 | CRLHL7_ITS ---
For Patients: As a result of the Century Cures Act, medical imaging exams and procedure reports are released immediately into your electronic medical record. You may view this report before your referring provider. If you have questions, please contact your health care provider. INDICATION: Clinical signs and symptoms of an acute stroke COMPARISON: None TECHNIQUE: CT examination of the head was performed as axial sections without intravenous contrast. Images were obtained from the vertex of the skull through the skull base. Please note that all CT scans at this facility use dose modulation, iterative reconstruction, and/or weight-based dosing when appropriate to reduce radiation dose to as low as reasonably achievable. FINDINGS: The brain shows no sign of mass lesion, mass effect, hemorrhage, or edema. There are involutional changes. There is mild cortical atrophy and there is mild white matter disease. There is no hydrocephalus. The visualized portions of the orbits are normal in appearance. The osseous structures are normal in appearance with no sign of abnormality in the skull base or calvarium. I discussed the above findings with Dr. Pryor at 7:42 a.m. on July 28, 2023 IMPRESSION: Involutional changes. No acute-appearing findings. Please note that all CT scans at this facility use dose modulation, iterative reconstruction, and/or weight-based dosing when appropriate to reduce radiation dose to as low as reasonably achievable. Dictated by Armen Egan MD @ 07/28/2023 7:42:57 AM (Electronically Signed)
--- NOTE | 2023-07-28 07:23 | ED.GENADULT ---
HPI - General Adult General Chief complaint: Altered Mental Status <Chey Pryor MD - Last Filed: 07/29/23 23:58> Stated complaint: slurring words,2 week post knee surgery <Chey Pryor MD - Last Filed: 07/29/23 23:58> Time Seen by Provider: 07/28/23 07:23 <Chey Pryor MD - Last Filed: 07/29/23 23:58> Source: patient and family <Chey Pryor MD - Last Filed: 07/29/23 23:58> Mode of arrival: ambulatory <Chey Pryor MD - Last Filed: 07/29/23 23:58> History of Present Illness HPI narrative: Patient route to CT via triage prior to initial physician encounter. Family reporting he awoke with slurred speech, disorientation. Last known normal 9:30 p.m. when he went to bed last night. I could not start my exam until patient had been in the ED almost 30 minutes due to the fact that maneuvering him to and from CT following his total knee arthroplasty was a bit cumbersome. Patient awoke at about 515 this morning and was apparently texting his son for ice, patient does not really remember this. Son presents with him to the ED and can confirm this. Patient's awoke at around 6:00 a.m. and found confused, had difficulty with word finding but also seemed to be slightly slurring his speech. She reports that he has had a very poor appetite and has been very fatigued the last few days. He had an uncomplicated left total knee arthroplasty 2 weeks ago. Has been participating in physical therapy as recommended. Patient does not note any difficulty moving his limbs specifically, reports that he is feeling quite a bit better now that he is in the ED. Did not try any home treatments prior to coming to the ED. No prior history of stroke, he is on twice daily aspirin for DVT prophylaxis but no other blood thinners. Denies headache or other neurological changes. No chest pain, syncope, dizziness. No prior history of similar symptoms. No recent falls or injury. No fevers. Denies dysuria or localizing symptoms of infection. Past medical history notable for hypertension, obesity. He has gzp-vydldgl-brvfqlkaj diabetes but is attempting diet control 1st. He also has a history of sleep apnea and reports compliance with CPAP. Home meds twice daily aspirin, Tylenol, hydrochlorothiazide, lisinopril simvastatin and omeprazole. Still has some senna and oxycodone post surgery. Allergies none known. ROS is notable for the neurological and generalized changes as above, otherwise he denies times 12 systems. <Chey Pryor MD - Last Filed: 07/29/23 23:58> Related Data Home medications: Home Medications ?Medication ?Instructions ?Recorded ?Confirmed aspirin 81 mg tablet,delayed 81 mg PO QDAY 10/30/21 07/29/23 release Previous Rx's ?Medication ?Instructions ?Recorded hydrochlorothiazide 25 mg tablet 25 mg PO DAILY #90 tabs 04/20/23 lisinopril 40 mg tablet 40 mg PO DAILY #90 tabs 04/20/23 omeprazole 20 mg capsule,delayed 20 mg PO DAILY #90 caps 04/20/23 release simvastatin 40 mg tablet 40 mg PO .Bedtime #90 tabs 04/20/23 acetaminophen 500 mg tablet 500 - 1,000 mg (1 - 2 x 500 mg) PO 07/14/23 Q6H PRN #100 tabs aspirin 81 mg tablet,delayed 81 mg PO BID 30 days #60 tabs 07/14/23 release sennosides 8.6 mg tablet (Senna 8.6 - 17.2 mg (1 - 2 x 8.6 mg) PO 07/14/23 Lax) BID PRN constipation #100 tabs oxycodone 5 mg tablet 2.5 - 5 mg (0.5 - 1 x 5 mg) PO 07/24/23 Q4-6H PRN Pain #42 tabs <Chey Pryro MD - Last Filed: 07/29/23 23:58> Allergies/adverse reactions: Allergies Allergy/AdvReac Type Severity Reaction Status Date / Time No Known Allergies Allergy Unknown Verified 07/29/23 13:58 <Chey Pryor MD - Last Filed: 07/29/23 23:58> [facility] Medical History: Medical History Unspecified essential hypertension (07/28/07) ?I10 - Essential (primary) hypertension (ICD-10) Special screening for malignant neoplasm of prostate (07/28/07) ?Z12.5 - Encounter for screening for malignant neoplasm of prostate (ICD-10) Mixed hyperlipidemia (04/30/06) ?E78.2 - Mixed hyperlipidemia (ICD-10) Impaired fasting glucose (07/28/07) ?R73.01 - Impaired fasting glucose (ICD-10) Elevated PSA (02/14/19) ?R97.20 - Elevated prostate specific antigen [PSA] (ICD-10) Benign neoplasm of colon (01/03/09) ?D12.6 - Benign neoplasm of colon, unspecified (ICD-10) Morbid obesity with BMI of 50.0-59.9, adult ?E66.01 - Morbid (severe) obesity due to excess calories (ICD-10) ?Z68.43 - Body mass index [BMI] 50.0-59.9, adult (ICD-10) Polyp of colon (03/12/11) ?K63.5 - Polyp of colon (ICD-10) Malignant neoplasm of prostate ?C61 - Malignant neoplasm of prostate (ICD-10) Hyperlipidemia ?E78.5 - Hyperlipidemia, unspecified (ICD-10) Obstructive sleep apnea (03/03/11) ?G47.33 - Obstructive sleep apnea (adult) (pediatric) (ICD-10) Sprain of ankle ?S93.409A - Sprain of unspecified ligament of unspecified ankle, initial encounter (ICD-10) <Chey Pryor MD - Last Filed: 07/29/23 23:58> Surgical History: Surgical History Status post total left knee replacement (07/14/23) ?Z96.652 - Presence of left artificial knee joint (ICD-10) S/P vasectomy ?Z98.52 - Vasectomy status (ICD-10) <Chey Pryor MD - Last Filed: 07/29/23 23:58> Social History: Social History Narrative: SOCIAL HISTORY: 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 He is not sexually active. He went back to lifting weights and doing walking over the past month but he admits there was a long period of time where he was not doing these things. Exercises not been great in the last year. He still enjoys woodworking and does quite a bit of this. He has a close friend who has a heated groin space that he has his equipment in. They both enjoy woodworking. HABITS: No tobacco, alcohol, recreational drug use. FAMILY HISTORY: Unchanged. Mother at 85. Father of myocardial infarction in his 60s. Grandparents with heart problems. Brother with non fatal myocardial infarction in his 40s. He was smoker (cigars), quit 1983. What is your current living situation?: I presently have a place to live Problems where you live: no known problems In the past 12 months, utilities in danger of being shut off: no In past 12 months, lack of transportation kept you from medical appts, meetings, work, or getting things needed for daily living: no In the past 12 mos, have been you worried that your food would run out before you had money to buy more?: never true In the past 12 mos, the food you bought just didn't last and you didn't have money to buy more?: never true Smoking Status: Former smoker What tobacco products do you use: cigars Do you use any of these nicotine containing products: None Second hand tobacco smoke exposure: No How often do you have a drink containing alcohol: never AUDIT-C Alcohol total score: 0 Non-prescribed substance use: denies use Caffeine: Yes How often does anyone, including family, friends and others, physically hurt you: never How often does anyone, including family, friends and others, insult or talk down to you: never How often does anyone, including family, friends and others, threaten you with harm: never How often does anyone, including family, friends and others, scream or curse at you: never Little interest or pleasure in doing things: not at all Feeling down, depressed, or hopeless: not at all <Chey Pryor MD - Last Filed: 07/29/23 23:58> Exam Const: Vital Signs, click to edit/add: Vital Signs - 24 hr 07/28/23 07:15 Temperature 98.5 F Pulse Rate [Pulse Oximeter] 92 Respiratory Rate 24 Blood Pressure [Ri ght Upper Arm] 111/62 Pulse Oximetry 92 Oxygen Delivery Me thod Room Air <Chey Pryor MD - Last Filed: 07/29/23 23:58> Vital Signs, click to edit/add: Vital Signs - 24 hr 07/28/23 07:15 Temperature 98.5 F Pulse Rate [Pulse Oximeter] 92 Respiratory Rate 24 Blood Pressure [[facility] Upper Arm] 111/62 Pulse Oximetry 92 Oxygen Delivery Me thod Room Air <Pedro Pablo Adame MD - Last Filed: 07/30/23 14:03> Documenting provider has reviewed patient's vital signs: yes <Chey Pryor MD - Last Filed: 07/29/23 23:58> Common normals: no apparent distress and alert <Chey Pryor MD - Last Filed: 07/29/23 23:58> General appearance: cooperative and well kempt <Chey Pryor MD - Last Filed: 07/29/23 23:58> Orientation/consciousness: Yes awake <Chey Pryor MD - Last Filed: 07/29/23 23:58> Other: His speech may be minimally slurred with a faint possible droop to the left corner of the mouth that was not reproducible on all parts of exam. Good word finding and descriptions for me on initial survey. No obvious confusion. <Chey Pryor MD - Last Filed: 07/29/23 23:58> HENMT: Common normals: normocephalic, moist oral mucous membranes and oropharynx normal <Chey Pryor MD - Last Filed: 07/29/23 23:58> Head and scalp: normocephalic <Chey Pryor MD - Last Filed: 07/29/23 23:58> Mouth: oral and palatal mucosa normal <Chey Pryor MD - Last Filed: 07/29/23 23:58> Throat: posterior oropharynx normal <Chey Pryor MD - Last Filed: 07/29/23 23:58> Eye: Common normals: PERRL, EOMs intact bilaterally and conjunctivae normal <Chey Pryor MD - Last Filed: 07/29/23 23:58> General eye: normal appearance of both eyes <MD Ilya Norton Last Filed: 07/29/23 23:58> Conjunctiva: conjunctiva(e) normal <MD Ilya Norton Last Filed: 07/29/23 23:58> Pupil: PERRL <MD Ilya Norton Last Filed: 07/29/23 23:58> Neck & C-Spine: Common normals: full ROM and no lymphadenopathy <MD Ilya Norton Last Filed: 07/29/23 23:58> Resp: Common normals: normal respiratory effort, no use of accessory muscles and clear to auscultation bilaterally <MD Ilya Norton Last Filed: 07/29/23 23:58> Effort & inspection: able to speak in complete sentences <MD Ilya Norton Last Filed: 07/29/23 23:58> Auscultation: clear to auscultation bilaterally <MD Ilya Norton Last Filed: 07/29/23 23:58> Cardio: Common normals: regular rate, regular rhythm, S1 normal heart sound, S2 normal heart sound and no murmurs <MD Ilya Norton Last Filed: 07/29/23 23:58> Rate: regular rate <MD Ilya Norton Last Filed: 07/29/23 23:58> Rhythm: regular rhythm <MD Ilya Norton Last Filed: 07/29/23 23:58> Heart sounds: S1 normal and S2 normal <MD Ilya Norton Last Filed: 07/29/23 23:58> GI: Common normals: Normal to inspection, nondistended, normoactive bowel sounds present, soft to palpation, non-tender, no hepatosplenomegaly and no masses <MD Ilya Norton Last Filed: 07/29/23 23:58> Palpation: soft and no hepatosplenomegaly <MD Ilya Norton Last Filed: 07/29/23 23:58> : Common normals: no CVA tenderness <Chey Pryor MD - Last Filed: 07/29/23 23:58> Bladder/kidney exam: no CVA tenderness <MD Ilya Norton Last Filed: 07/29/23 23:58> Back & Pelvis: Common normals: no CVA tenderness <MD Ilya Norton Last Filed: 07/29/23 23:58> Extremity: Other: Midline incision over left knee does have bruising and warmth, some redness. No drainage. It is not exquisitely tender to palpation. 1+ edema left leg no obvious palpable clot. <MD Ilya Norton Last Filed: 07/29/23 23:58> Neuro: Common normals: moves all extremities, no focal motor deficits and no sensory deficits noted <Chey Pryor MD - Last Filed: 07/29/23 23:58> Sensorium/orientation: awake and alert <MD Ilya Norton Last Filed: 07/29/23 23:58> Coordination/balance: [id number] test normal <MD Ilya Norton Last Filed: 07/29/23 23:58> Motor exam: no pronator drift <MD Ilya Norton Last Filed: 07/29/23 23:58> Coordination: izosjh-ul-lyzc test normal <MD Ilya Norton Last Filed: 07/29/23 23:58> Psych: Appearance: well kempt <Chey Pryor MD - Last Filed: 07/29/23 23:58> Attitude: engaged <MD Ilya Norton Last Filed: 07/29/23 23:58> Activity/motor behavior: appropriate eye contact <MD Ilya Norton Last Filed: 07/29/23 23:58> Mood and affect: euthymic mood <MD Ilya Norton Last Filed: 07/29/23 23:58> Insight: fair <MD Ilya Norton Last Filed: 07/29/23 23:58> Judgement: fair <MD Ilya Norton Last Filed: 07/29/23 23:58> Other: Remote memory very good, some fuzziness regarding events of this morning. Cooperative with no agitation <Chey Pryor MD - Last Filed: 07/29/23 23:58> Skin: Narrative: Redness and warmth over left knee incision as well as bruising. No severe swelling or marked tenderness. <Chey Pryor MD - Last Filed: 07/29/23 23:58> Course Course ED Course: Altered mental status of uncertain etiology. Initially I was concerned with stroke consent patient to CT prior to any other assessment. Upon talking to him further. He does smell strongly of urine, seems to be slightly delirious with no other obvious focal neurological deficits. His O2 sats are slightly low, pulse is slightly high and blood pressure is low normal. I think this may be in early sepsis or infection. Stroke a stool certainly on the differential diagnosis. I had a chance to review the head CT now that he is back in this does not show any signs of intracranial hemorrhage. I would like to started IV, bolus normal saline, typical sepsis labs and EKG. Consider neurology consult if labs are unrevealing. He is not in a thrombolytics window, nor does he have obvious focal neurological deficits that would warrant initial aggressive management. Anticipate handing over care to my in coming day shift partner. <Chey Pryor MD - Last Filed: 07/29/23 23:58> Reevaluation(s) Reevaluation #1: Wendi -- inherited this patient at change of shift with concern of potential sepsis in the setting of altered mental status. Head CT unremarkable for acute abnormality. Two weeks status post left total knee. In conversing with him does seem quite alert with good recall at this time. Admits to remarkable level of fatigue since surgery but more increased over the last few days. Did have a fall out of bed 2-3 days ago requiring assistance by EMS to get back into the bed. Has not measured a fever. Unsure whether and not the knee is more red than before but says on evaluation here that does seem to be a little more red and warm. He is not having particularly increased pain just expected level of postop pain. Lactate is return mildly elevated at 2. CRP returns at 6.7 also elevated. White count is normal. Total bili and transaminases are elevated though he is not complaining of abdominal pain. Would presume related to degree of presumed infection less likely fatty liver as has been normal prior. Oropharynx is quite dry with dry dentition. I have discussed this case with Orthopedics and anticipate them coming to evaluate his knee at some point soon. I requested another L of fluids as lactated Ringer's and once urine is collected will initiate antibiotics <Pedro Pablo Adame MD - Last Filed: 07/30/23 14:03> Reevaluation #2: Mr. Matthews has 2 sirs criteria with heart rate over 90 on initial presentation and respirations over 20. At this point though I have not identified any source of infection. Will do chest x-ray did as well. Mildly hypoxic 92% though does have sleep apnea and this is not entirely inconsistent with prior measurements. After initial L fluid resuscitation reportedly feeling much better. Unusual delay to blood culture collection and also pending urinalysis result has delayed antibiotic initiation however with further review does not seem to be septic. Orthopedics has also come to consult. They do not believe that the postop joint to be involved in potential infection. Repeat lactate is now 1.2. I think was definitely pre renal <Pedro Pablo Adame MD - Last Filed: 07/30/23 14:03> Vital Signs Vital signs: Initial Vital Signs Temperature 98.5 F 07/28/23 07:15 Temperature Source Temporal Artery Scan 07/28/23 07:15 Pulse Rate 92 07/28/23 07:15 Respiratory Rate 24 07/28/23 07:15 Blood Pressure 111/62 07/28/23 07:15 Blood Pressure Mean 78 07/28/23 07:15 Blood Pressure Position Semi-Fowlers 07/28/23 07:15 Pulse Oximetry 92 07/28/23 07:15 Oxygen Delivery Method Room Air 07/28/23 07:15 Vital Signs Temperature 98.5 F 07/28/23 07:15 Pulse Rate 92 07/28/23 07:15 Respiratory Rate 24 07/28/23 07:15 Blood Pressure 111/62 07/28/23 07:15 Pulse Oximetry 92 07/28/23 07:15 Oxygen Delivery Method Room Air 07/28/23 07:15 Temperature 98.5 F 07/28/23 07:15 Pulse Rate 71 07/28/23 12:02 Respiratory Rate 24 07/28/23 07:15 Blood Pressure 104/62 07/28/23 12:02 Pulse Oximetry 94 07/28/23 12:02 Oxygen Delivery Method Room Air 07/28/23 07:15 <Chey Pryor MD - Last Filed: 07/29/23 23:58> Initial Vital Signs Temperature 98.5 F 07/28/23 07:15 Temperature Source Temporal Artery Scan 07/28/23 07:15 Pulse Rate 92 07/28/23 07:15 Respiratory Rate 24 07/28/23 07:15 Blood Pressure 111/62 07/28/23 07:15 Blood Pressure Mean 78 07/28/23 07:15 Blood Pressure Position Semi-Fowlers 07/28/23 07:15 Pulse Oximetry 92 07/28/23 07:15 Oxygen Delivery Method Room Air 07/28/23 07:15 Vital Signs Temperature 98.5 F 07/28/23 07:15 Pulse Rate 92 07/28/23 07:15 Respiratory Rate 24 07/28/23 07:15 Blood Pressure 111/62 07/28/23 07:15 Pulse Oximetry 92 07/28/23 07:15 Oxygen Delivery Method Room Air 07/28/23 07:15 Temperature 98.5 F 07/28/23 07:15 Pulse Rate 71 07/28/23 12:02 Respiratory Rate 24 07/28/23 07:15 Blood Pressure 104/62 07/28/23 12:02 Pulse Oximetry 94 07/28/23 12:02 Oxygen Delivery Method Room Air 07/28/23 07:15 <Pedro Pablo Adame MD - Last Filed: 07/30/23 14:03> Medications Administered Medications: Discontinued Medications Generic Name Dose Route Start Last Admin Trade Name Freq PRN Reason Stop Dose Admin Sodium Chloride 1,000 mls @ 1,000 mls/hr 07/28/23 07:43 07/28/23 08:57 0.9 % Sodium Chloride 1000 Ml IV 07/28/23 08:42 Infused .Q1H YANCY Infusion Lactated Ringer's 1,000 mls @ 1,000 mls/hr 07/28/23 08:11 07/28/23 10:05 Lactated Ringers 1000 Ml IV 07/28/23 09:10 Infused .Q1H ONE Infusion Ceftriaxone Sodium 1 gm/ 100 mls @ 200 mls/hr 07/28/23 10:53 07/28/23 12:19 Sodium Chloride IVPB 07/28/23 10:54 Infused ONCE ONE Infusion <Chey Pryor MD - Last Filed: 07/29/23 23:58> Discontinued Medications Generic Name Dose Route Start Last Admin Trade Name Renetta PRN Reason Stop Dose Admin Sodium Chloride 1,000 mls @ 1,000 mls/hr 07/28/23 07:43 07/28/23 08:57 0.9 % Sodium Chloride 1000 Ml IV 07/28/23 08:42 Infused .Q1H YANCY Infusion Lactated Ringer's 1,000 mls @ 1,000 mls/hr 07/28/23 08:11 07/28/23 10:05 Lactated Ringers 1000 Ml IV 07/28/23 09:10 Infused .Q1H ONE Infusion Ceftriaxone Sodium 1 gm/ 100 mls @ 200 mls/hr 07/28/23 10:53 07/28/23 12:19 Sodium Chloride IVPB 07/28/23 10:54 Infused ONCE ONE Infusion <Pedro Pablo Adame MD - Last Filed: 07/30/23 14:03> Medical Decision Making MDM Narrative Medical decision making narrative: To further request one-view chest with mild hypoxia. Appears to be without airspace disease by my read. No pneumothorax. Received L of normal saline as well as LR. Already after initial L was does markedly improved and more energetic. Continued mental clarity. Given g of Rocephin for what I think is the source of infection namely a mild cellulitis around his leg/knee. Discussed admission versus going home. Clearly is preference is to return home if possible. I think he does look improved enough to do this. Vitals are otherwise reassuring. Will need recheck of transaminases. Did recheck on exam and he is absent any tenderness in the right upper quadrant See patient discharge plan for further discussion/plan <Pedro Pablo Adame MD - Last Filed: 07/30/23 14:03> Medical Records Medical records reviewed: Yes I reviewed the patient's medical records <Pedro Pablo Adame MD - Last Filed: 07/30/23 14:03> Lab Data Lab results reviewed: Yes I reviewed the patient's lab results <Pedro Pablo Adame MD - Last Filed: 07/30/23 14:03> Labs: Lab Results 07/28/23 07/28/23 07/28/23 Range/Units 07:50 08:28 08:45 WBC 8.38 (4.50-11.00) K/uL RBC 4.58 (4.30-5.90) m/uL Hgb 13.3 L (13.5-17.5) gm/dL Hct 40.2 (37.0-53.0) % MCV 88 (80-100) fL MCH 29 (26-34) pg MCHC 33 (32-36) gm/dL RDW Coeff of Anjali 14.0 (11.5-15.5) % Plt Count 335 (140-440) K/uL Neut % (Auto) 91.5 H (42.0-72.0) % Lymph % (Auto) 4.4 L (20-44) % [place] % (Auto) 3.3 (0.0-11.0) % Eos % (Auto) 0.0 (0.0-7.0) % Baso % (Auto) 0.4 (0.0-3.0) % Neut # (Auto) 7.70 H (1.7-7.0) K/uL Lymph # (Auto) 0.40 L (0.90-2.90) K/uL [place] # (Auto) 0.30 (0.00-0.90) K/UL Eos # (Auto) 0.00 (0.00-0.50) K/uL Baso # (Auto) 0.03 (0.00-0.30) K/uL Abs Immat Gran (auto) 0.03 (0.00-0.30) K/uL Imm/Tot Granulo (auto) 0.4 % VBG pH (7.32-7.43) VBG pCO2 (40-50) mmHG VBG pO2 (25-47) mmHG VBG HCO3 (21-28) mmol/L Sodium 132 L (135-149) mmol/L Potassium 4.3 (3.6-5.1) mmol/L Chloride 100 (96-114) mmol/L Carbon Dioxide 22 (20-32) mmol/L Anion Gap 10 (7-15) mEq/L BUN 45 H (7-30) mg/dL Creatinine 1.6 H (0.5-1.5) mg/dL Estimated Creat Clear 48.50 Estimated GFR 47 ml/min Glucose 164 H (60-115) mg/dL Lactate 2.0 H (0.5-1.9) mmol/L Calcium 8.4 (8.4-10.6) mg/dL Total Bilirubin 1.9 H (0.1-1.5) mg/dL AST 70 H (12-35) U/L ALT 61 H (4-50) U/L Alkaline Phosphatase 82 (40-150) U/L Troponin I < 0.01 L (0.01-0.04) ng/mL C-Reactive Protein 6.7 H (0.5-1.0) mg/dL NT-Pro-B Natriuret Pep 268 pg/mL Total Protein 7.8 (6.0-8.3) g/dL Albumin 4.2 (3.3-5.0) g/dL Procalcitonin 0.51 H (<0.50) ng/mL Urine Color Dark yellow (Yellow) Urine Appearance Slightly Cloudy A (Clear) Urine pH 5.5 (5.0-8.5) Ur Specific [place] 1.015 (1.000-1.030) Urine Protein Negative (Negative) Urine Glucose (UA) Negative (Negative) Urine Ketones Negative (Negative) Urine Blood Negative (Negative) Urine Nitrite Negative (Negative) Urine Bilirubin Negative (Negative) Urine Urobilinogen 1.0 (0.2-1.0) Ur Leukocyte Esterase Negative (Negative) Urine RBC 0-2 (0-2) Urine WBC 0-2 (0-5) Ur Squamous Epith Cells Few (None-Few) Urine Bacteria None (None) SARS-CoV-2 (PCR) Negative SARS-CoV-2 (Negative) Influenza Type A (PCR) Negative PCR FLU A (Negative) Influenza Type B (PCR) Negative PCR FLU B (Negative) RSV (PCR) Negative PCR RSV (Negative) POC Troponin I 0.01 (0.01-0.04) ng/ml 07/28/23 07/28/23 Range/Units 09:14 10:00 WBC (4.50-11.00) K/uL RBC (4.30-5.90) m/uL Hgb (13.5-17.5) gm/dL Hct (37.0-53.0) % MCV (80-100) fL MCH (26-34) pg MCHC (32-36) gm/dL RDW Coeff of Anjali (11.5-15.5) % Plt Count (140-440) K/uL Neut % (Auto) (42.0-72.0) % Lymph % (Auto) (20-44) % [place] % (Auto) (0.0-11.0) % Eos % (Auto) (0.0-7.0) % Baso % (Auto) (0.0-3.0) % Neut # (Auto) (1.7-7.0) K/uL Lymph # (Auto) (0.90-2.90) K/uL [place] # (Auto) (0.00-0.90) K/UL Eos # (Auto) (0.00-0.50) K/uL Baso # (Auto) (0.00-0.30) K/uL Abs Immat Gran (auto) (0.00-0.30) K/uL Imm/Tot Granulo (auto) % VBG pH 7.444 H (7.32-7.43) VBG pCO2 34 L (40-50) mmHG VBG pO2 54.6 H (25-47) mmHG VBG HCO3 23 (21-28) mmol/L Sodium (135-149) mmol/L Potassium (3.6-5.1) mmol/L Chloride (96-114) mmol/L Carbon Dioxide (20-32) mmol/L Anion Gap (7-15) mEq/L BUN (7-30) mg/dL Creatinine (0.5-1.5) mg/dL Estimated Creat Clear Estimated GFR ml/min Glucose (60-115) mg/dL Lactate 1.2 (0.5-1.9) mmol/L Calcium (8.4-10.6) mg/dL Total Bilirubin (0.1-1.5) mg/dL AST (12-35) U/L ALT (4-50) U/L Alkaline Phosphatase (40-150) U/L Troponin I (0.01-0.04) ng/mL C-Reactive Protein (0.5-1.0) mg/dL NT-Pro-B Natriuret Pep pg/mL Total Protein (6.0-8.3) g/dL Albumin (3.3-5.0) g/dL Procalcitonin (<0.50) ng/mL Urine Color (Yellow) Urine Appearance (Clear) Urine pH (5.0-8.5) Ur Specific [place] (1.000-1.030) Urine Protein (Negative) Urine Glucose (UA) (Negative) Urine Ketones (Negative) Urine Blood (Negative) Urine Nitrite (Negative) Urine Bilirubin (Negative) Urine Urobilinogen (0.2-1.0) Ur Leukocyte Esterase (Negative) Urine RBC (0-2) Urine WBC (0-5) Ur Squamous Epith Cells (None-Few) Urine Bacteria (None) SARS-CoV-2 (PCR) (Negative) Influenza Type A (PCR) (Negative) Influenza Type B (PCR) (Negative) RSV (PCR) (Negative) POC Troponin I (0.01-0.04) ng/ml <Chey Pryor MD - Last Filed: 07/29/23 23:58> Lab Results 07/28/23 07/28/23 07/28/23 Range/Units 07:50 08:28 08:45 WBC 8.38 (4.50-11.00) K/uL RBC 4.58 (4.30-5.90) m/uL Hgb 13.3 L (13.5-17.5) gm/dL Hct 40.2 (37.0-53.0) % MCV 88 (80-100) fL MCH 29 (26-34) pg MCHC 33 (32-36) gm/dL RDW Coeff of Anjali 14.0 (11.5-15.5) % Plt Count 335 (140-440) K/uL Neut % (Auto) 91.5 H (42.0-72.0) % Lymph % (Auto) 4.4 L (20-44) % [place] % (Auto) 3.3 (0.0-11.0) % Eos % (Auto) 0.0 (0.0-7.0) % Baso % (Auto) 0.4 (0.0-3.0) % Neut # (Auto) 7.70 H (1.7-7.0) K/uL Lymph # (Auto) 0.40 L (0.90-2.90) K/uL [place] # (Auto) 0.30 (0.00-0.90) K/UL Eos # (Auto) 0.00 (0.00-0.50) K/uL Baso # (Auto) 0.03 (0.00-0.30) K/uL Abs Immat Gran (auto) 0.03 (0.00-0.30) K/uL Imm/Tot Granulo (auto) 0.4 % VBG pH (7.32-7.43) VBG pCO2 (40-50) mmHG VBG pO2 (25-47) mmHG VBG HCO3 (21-28) mmol/L Sodium 132 L (135-149) mmol/L Potassium 4.3 (3.6-5.1) mmol/L Chloride 100 (96-114) mmol/L Carbon Dioxide 22 (20-32) mmol/L Anion Gap 10 (7-15) mEq/L BUN 45 H (7-30) mg/dL Creatinine 1.6 H (0.5-1.5) mg/dL Estimated Creat Clear 48.50 Estimated GFR 47 ml/min Glucose 164 H (60-115) mg/dL Lactate 2.0 H (0.5-1.9) mmol/L Calcium 8.4 (8.4-10.6) mg/dL Total Bilirubin 1.9 H (0.1-1.5) mg/dL AST 70 H (12-35) U/L ALT 61 H (4-50) U/L Alkaline Phosphatase 82 (40-150) U/L Troponin I < 0.01 L (0.01-0.04) ng/mL C-Reactive Protein 6.7 H (0.5-1.0) mg/dL NT-Pro-B Natriuret Pep 268 pg/mL Total Protein 7.8 (6.0-8.3) g/dL Albumin 4.2 (3.3-5.0) g/dL Procalcitonin 0.51 H (<0.50) ng/mL Urine Color Dark yellow (Yellow) Urine Appearance Slightly Cloudy A (Clear) Urine pH 5.5 (5.0-8.5) Ur Specific [place] 1.015 (1.000-1.030) Urine Protein Negative (Negative) Urine Glucose (UA) Negative (Negative) Urine Ketones Negative (Negative) Urine Blood Negative (Negative) Urine Nitrite Negative (Negative) Urine Bilirubin Negative (Negative) Urine Urobilinogen 1.0 (0.2-1.0) Ur Leukocyte Esterase Negative (Negative) Urine RBC 0-2 (0-2) Urine WBC 0-2 (0-5) Ur Squamous Epith Cells Few (None-Few) Urine Bacteria None (None) SARS-CoV-2 (PCR) Negative SARS-CoV-2 (Negative) Influenza Type A (PCR) Negative PCR FLU A (Negative) Influenza Type B (PCR) Negative PCR FLU B (Negative) RSV (PCR) Negative PCR RSV (Negative) POC Troponin I 0.01 (0.01-0.04) ng/ml 07/28/23 07/28/23 Range/Units 09:14 10:00 WBC (4.50-11.00) K/uL RBC (4.30-5.90) m/uL Hgb (13.5-17.5) gm/dL Hct (37.0-53.0) % MCV (80-100) fL MCH (26-34) pg MCHC (32-36) gm/dL RDW Coeff of Anjali (11.5-15.5) % Plt Count (140-440) K/uL Neut % (Auto) (42.0-72.0) % Lymph % (Auto) (20-44) % [place] % (Auto) (0.0-11.0) % Eos % (Auto) (0.0-7.0) % Baso % (Auto) (0.0-3.0) % Neut # (Auto) (1.7-7.0) K/uL Lymph # (Auto) (0.90-2.90) K/uL [place] # (Auto) (0.00-0.90) K/UL Eos # (Auto) (0.00-0.50) K/uL Baso # (Auto) (0.00-0.30) K/uL Abs Immat Gran (auto) (0.00-0.30) K/uL Imm/Tot Granulo (auto) % VBG pH 7.444 H (7.32-7.43) VBG pCO2 34 L (40-50) mmHG VBG pO2 54.6 H (25-47) mmHG VBG HCO3 23 (21-28) mmol/L Sodium (135-149) mmol/L Potassium (3.6-5.1) mmol/L Chloride (96-114) mmol/L Carbon Dioxide (20-32) mmol/L Anion Gap (7-15) mEq/L BUN (7-30) mg/dL Creatinine (0.5-1.5) mg/dL Estimated Creat Clear Estimated GFR ml/min Glucose (60-115) mg/dL Lactate 1.2 (0.5-1.9) mmol/L Calcium (8.4-10.6) mg/dL Total Bilirubin (0.1-1.5) mg/dL AST (12-35) U/L ALT (4-50) U/L Alkaline Phosphatase (40-150) U/L Troponin I (0.01-0.04) ng/mL C-Reactive Protein (0.5-1.0) mg/dL NT-Pro-B Natriuret Pep pg/mL Total Protein (6.0-8.3) g/dL Albumin (3.3-5.0) g/dL Procalcitonin (<0.50) ng/mL Urine Color (Yellow) Urine Appearance (Clear) Urine pH (5.0-8.5) Ur Specific [place] (1.000-1.030) Urine Protein (Negative) Urine Glucose (UA) (Negative) Urine Ketones (Negative) Urine Blood (Negative) Urine Nitrite (Negative) Urine Bilirubin (Negative) Urine Urobilinogen (0.2-1.0) Ur Leukocyte Esterase (Negative) Urine RBC (0-2) Urine WBC (0-5) Ur Squamous Epith Cells (None-Few) Urine Bacteria (None) SARS-CoV-2 (PCR) (Negative) Influenza Type A (PCR) (Negative) Influenza Type B (PCR) (Negative) RSV (PCR) (Negative) POC Troponin I (0.01-0.04) ng/ml <Pedro Pablo Adame MD - Last Filed: 07/30/23 14:03> Imaging Data CT scan - head: Attestation: I have reviewed the pertinent imaging results. <Chey Pryor MD - Last Filed: 07/29/23 23:58> My impression: Some aging related changes in vessel calcifications but no obvious signs of intracranial hemorrhage <Chey Pryor MD - Last Filed: 07/29/23 23:58> Radiologist's impression: IMPRESSION: Involutional changes. No acute-appearing findings. <Chey Pryor MD - Last Filed: 07/29/23 23:58> ECG Data Attestation: I personally reviewed and interpreted this ECG as follows: <Chey Pryor MD - Last Filed: 07/29/23 23:58> Prior ECG tracings: not available for review <Chey Pryor MD - Last Filed: 07/29/23 23:58> Interpretation: Normal sinus rhythm, rate of 88. Normal axis and intervals. No significant ST or T-wave abnormalities, normal EKG, no prior comparison. <Chey Pryor MD - Last Filed: 07/29/23 23:58> Discharge Plan Discharge Clinical Impression: Altered mental status, Dehydration, SIRS (systemic inflammatory response syndrome), Cellulitis <Chey Pryor MD - Last Filed: 07/29/23 23:58> Patient Disposition: Home w/ Parent or Adult <Chey Pryor MD - Last Filed: 07/29/23 23:58> Condition: Improved <Chey Pryor MD - Last Filed: 07/29/23 23:58> Additional Instructions: It appears that some degree of dehydration complicated some other inflammatory process. This may be a cellulitis around left knee. No source otherwise identified. Blood cultures are pending we will call you if these are concerning. I would like to continue treatment though for potential cellulitis as discussed. Keep working on hydration. Report/return for worsening weakness, increasing shortness of breath, fever. Cephalexin from [facility]. Take for 8 days. Can start tomorrow morning. The Rocephin should cover you till then. Would follow up for lab recheck though in a couple of weeks as well. Your liver enzymes were little elevated which looks to be out of the ordinary for you. CRP was also elevated 6.7 <Chey Pryor MD - Last Filed: 07/29/23 23:58> Prescriptions: No Action aspirin 81 mg tablet,delayed release (DR/EC) 81 mg PO QDAY Hold Instructions: Resume on 08/13/23. Patient will hold this aspirin prescription and instead be taking aspirin 81 mg TWICE daily x 30 days. hydrochlorothiazide 25 mg tablet 25 mg PO DAILY Qty: 90 3RF lisinopril 40 mg tablet 40 mg PO DAILY Qty: 90 3RF simvastatin 40 mg tablet 40 mg PO .Bedtime Qty: 90 3RF omeprazole 20 mg capsule,delayed release(DR/EC) 20 mg PO DAILY Qty: 90 3RF aspirin 81 mg tablet,delayed release (DR/EC) 81 mg PO BID 30 Days Qty: 60 0RF Rx Instructions: For DVT prophylaxis, take TWICE daily. acetaminophen 500 mg tablet 500 - 1,000 mg PO Q6H MDD 4,000 mg in 24 hours PRNQty: 100 0RF sennosides [Senna Lax] 8.6 mg tablet 8.6 - 17.2 mg PO BID PRN (Reason: constipation) Qty: 100 0RF Rx Instructions: Hold if experiencing loose stools. oxycodone 5 mg tablet 2.5 - 5 mg PO Q4-6H MDD 6 tabs per day PRN (Reason: Pain) Qty: 42 0RF Rx Instructions: Minimize. Discontinue as soon as possible <Chey Pryor MD - Last Filed: 07/29/23 23:58> Follow Up/Referrals: Geovany Hermosillo MD [Primary Care Provider] - <Chey Pryor MD - Last Filed: 07/29/23 23:58> Stand Alone Forms: [facility] Info Instructions <Chey Pryor MD - Last Filed: 07/29/23 23:58>
[2023-07-28] MEDS: 0.9 % SODIUM CHLORIDE 1000 ml 1,000 ML IV (07:56)
--- OUTSIDE RECORDS SUMMARY | 2023-07-28 08:00 | XMS_ITS | Clinical Summary ---
Author Organization [facility] Address [place], [place] [address] Care Team Providers Care Vice Chancellor Name Role Phone Geovany Hermosillo MD Primary Care Provider [phone] Allergies No known active allergies Medications Medication [...] History Relation Name Comments Heart Disease Brother [place] @ 47 yo Heart Disease Father heart [...] Comments Blood Pressure 150/88 01/09/2020 1:03 PM UNIX ANALYST Pulse 87 01/09/2020 1:03 PM UNIX ANALYST Temperature 36.8 ??C (98.3 ??F) 10/14/2012 1 1:32 AM CDT Respiratory Rate 18 01/09/2020 1:03 PM UNIX ANALYST Oxygen Saturation 97% 01/09/2020 1:0 3 PM UNIX ANALYST Inhaled Oxygen Concentration - - Weight 174.5 kg (384 lb 12.8 oz) 01/09/2020 1:03 PM UNIX ANALYST Pt weighed with shoes on. Height 180.7 [...] REFLEX MEASURED LDL Routine 05/02/2010 7:59 AM UNIX ANALYST HYPERLIPIDEMIA MIXED from Last 3 Months or Most Recently Relevant to Health Maintenance Results * (ABNORMAL) LIPID PANEL W REFLEX MEASURED LDL (05/02/2010 7:59 AM UNIX ANALYST) CHOLESTEROL,TOTAL 169 110 - 199 mg/dL [facility] TRIGLYCERIDES 134 <150 mg/dL [facility] HDL CHOLESTEROL 34(L) >40 mg/dL [facility] CHOL/HDL RATIO 4.97(H) <4.51 [facility] LDL CHOLESTEROL 108 <131 mg/dL [facility] PATIENT STATUS Fasting [facility] Blood specimen (specimen) BLOOD SPECIMEN / Unknown 05/02/2010 7:59 AM UNIX ANALYST 05/02/2010 7:53 AM UNIX ANALYST Ferny Piña MD CHEMISTRY [facility] [address] [place] [address], [place] [id number] from Last 3 Months or Most Recently Relevant to Health Maintenance Care Teams Vice Chancellor Relationship Specialty Start Date End Date Geovany Hermosillo MD PCP - General Family Practice 10/14/12
[2023-07-28 08:05] LABS: Basophils Absolute Auto 0.03 K/uL (0.00-0.30); Basophils Percent Auto 0.4 % (0.0-3.0); Hematocrit 40.2 % (37.0-53.0); Hemoglobin* 13.3 gm/dL (13.5-17.5); Immature Granulocytes Abs Auto 0.03 K/uL (0.00-0.30); Immature Granulocytes Pct Auto 0.4 %; Lymphocytes Percent Auto 4.4 % (20-44); Mean Corpuscular HGB Conc 33 gm/dL (32-36); Mean Corpuscular Hemoglobin 29 pg (26-34); Mean Corpuscular Volume 88 fL (80-100); Monocytes Percent Auto 3.3 % (0.0-11.0); Neutrophils Percent Auto 91.5 % (42.0-72.0); Platelet Count* 335 K/uL (140-440); Red Blood Count 4.58 m/uL (4.30-5.90); White Blood Count* 8.38 K/uL (4.50-11.00)
[2023-07-28 08:06] LABS: Slide Review Reflex No
[2023-07-28 08:11] LABS: Troponin, Point-of-Care* 0.01 ng/ml (0.01-0.04)
[2023-07-28 08:16] LABS: Albumin* 4.2 g/dL (3.3-5.0); Chloride* 100 mmol/L (96-114)
[2023-07-28 08:17] LABS: Potassium* 4.3 mmol/L (3.6-5.1); Sodium* 132 mmol/L (135-149)
[2023-07-28 08:19] LABS: Alkaline Phosphatase* 82 U/L (40-150); Anion Gap 10 mEq/L (7-15); Aspartate Amino Transferase* 70 U/L (12-35); Bilirubin Total* 1.9 mg/dL (0.1-1.5); Carbon Dioxide* 22 mmol/L (20-32); Creatinine* 1.6 mg/dL (0.5-1.5); Estimated Glomerular Filt Rate 47 ml/min; Total Protein* 7.8 g/dL (6.0-8.3)
[2023-07-28 08:20] LABS: Alanine Aminotransferase* 61 U/L (4-50); Blood Urea Nitrogen* 45 mg/dL (7-30); Calcium* 8.4 mg/dL (8.4-10.6); Glucose* 164 mg/dL (60-115)
[2023-07-28 08:22] LABS: C Reactive Protein* 6.7 mg/dL (0.5-1.0)
[2023-07-28 08:34] LABS: NT Pro B Type NatriureticPept* 268 pg/mL; Troponin I* < 0.01 ng/mL (0.01-0.04)
[2023-07-28 08:53] LABS: Procalcitonin* 0.51 ng/mL (<0.50)
[2023-07-28] MEDS: LACTATED RINGERS 1000 ML 1,000 ML IV (08:57)
[2023-07-28 09:03] LABS: Appearance Urine Slightly Cloudy (Clear); Bilirubin Urine Negative (Negative); Blood Urine Negative (Negative); Color Urine Dark yellow (Yellow); Glucose Urine Negative (Negative); Ketones Urine Negative (Negative); Leukocyte Esterase Urine Negative (Negative); Nitrite Urine Negative (Negative); Protein Urine Negative (Negative); Specific Gravity Urine 1.015 (1.000-1.030); pH Urine 5.5 (5.0-8.5)
[2023-07-28 09:22] LABS: PCR FLU A Negative PCR FLU A (Negative); PCR FLU B Negative PCR FLU B (Negative); PCR RSV Negative PCR RSV (Negative); SARS PCR* Negative SARS-CoV-2 (Negative)
[2023-07-28 09:35] LABS: HCO3 VBG 23 mmol/L (21-28); PCO2 VBG 34 mmHG (40-50); PO2 VBG 54.6 mmHG (25-47); pH VBG 7.444 (7.32-7.43)
[2023-07-28 10:05] LABS: Lactate Sepsis 2 Hour 1.2 mmol/L (0.5-1.9)
[2023-07-28 10:12] LABS: RBC Urine 0-2 (0-2); WBC Urine 0-2 (0-5)
[2023-07-28 10:13] LABS: Squamous Epithelial Cell Urine Few (None-Few)
--- NOTE | 2023-07-28 10:26 | CRLHL7_ITS ---
For Patients: As a result of the Cures Act, medical imaging exams and procedure reports are released immediately into your electronic medical record. You may view this report before your referring provider. If you have questions, please contact your health care provider. INDICATION: Mild hypoxia. Altered mental status. COMPARISON: None TECHNIQUE: Synovial portable study FINDINGS: TUBES AND LINES: None. HEART AND MEDIASTINUM: The heart size is normal. The mediastinal contour appears normal for patient age. LUNGS AND PLEURAL SPACES: The lungs appear normal.The pleural spaces are unremarkable. OSSEOUS STRUCTURES: There is an ununited, displaced mid left clavicular fracture IMPRESSION: No evidence of active pulmonary disease. Nonacute left clavicular fracture. Dictated by Armen Egan MD @ 07/28/2023 11:00:59 AM (Electronically Signed)
[2023-07-28] MEDS: cefTRIAXone 1 GM in 0.9 % SODIUM CHLORIDE Mini-bag 100 ML IVPB (11:01)
--- NOTE | 2023-07-28 16:26 | P.ORCN_ITS ---
History of Present Illness HPI Date Seen: 07/28/23 Consult date: 07/28/23 Requesting physician: Pedro Pablo Adame Chief complaint: slurring words,2 week post knee surgery Narrative: Orthopedics consulted on this 67-year-old male past medical history of left total knee arthroplasty performed 2 weeks prior (07/14/2023) by Dr. Chau who comes in today to [facility] ER by his family with concerns for stroke like symptoms. They state that patient was slurring his words, and not making sense. They felt that he was not his normal self this morning when he woke up. Patient explains to me that he knew what was going on around him, but was not able to express the correct words or form complete coherent sentences. He also comments that he has felt more fatigued over the last week compared to week 1 postop left TKA and notes aching discomfort in the left knee. Denies any fevers, chills, or objective measured temperatures. Recalls falling a few days ago, which he describes more of a slide out of his bed onto the floor. He was u nable to get himself off the floor and requested EMS help. Was not seen for this injury. States that he feels dehydrated, and notes that he has not been eating much. Denies any breathing difficulty, chest discomfort, or lower leg discomfort such as a cast. No headache. Aside from the aching discomfort in his knee, he feels his knee motion is doing well. Together, they notes some mildly increased redness around the left knee; but the also explains that she often does not see the knee because of the Tubigrip presence. Passing stool and urine okay. No constipation. Performing his physical therapy routine, which his says he could do more of. Continues aspirin twice daily for DVT prophylaxis. He has type 2 diabetes, and recalls last A1c around 6, diet controlled at this time. Review of Systems Narrative: No recent fevers, chills, or aches; no numbness or tingling distally. No recent illnesses. [facility] Medical History Unspecified essential hypertension (07/28/07) ?I10 - Essential (primary) hypertension (ICD-10) Special screening for malignant neoplasm of prostate (07/28/07) ?Z12.5 - Encounter for screening for malignant neoplasm of prostate (ICD-10) Mixed hyperlipidemia (04/30/06) ?E78.2 - Mixed hyperlipidemia (ICD-10) Impaired fasting glucose (07/28/07) ?R73.01 - Impaired fasting glucose (ICD-10) Elevated PSA (02/14/19) ?R97.20 - Elevated prostate specific antigen [PSA] (ICD-10) Benign neoplasm of colon (01/03/09) ?D12.6 - Benign neoplasm of colon, unspecified (ICD-10) Morbid obesity with BMI of 50.0-59.9, adult ?E66.01 - Morbid (severe) obesity due to excess calories (ICD-10) ?Z68.43 - Body mass index [BMI] 50.0-59.9, adult (ICD-10) Polyp of colon (03/12/11) ?K63.5 - Polyp of colon (ICD-10) Malignant neoplasm of prostate ?C61 - Malignant neoplasm of prostate (ICD-10) Hyperlipidemia ?E78.5 - Hyperlipidemia, unspecified (ICD-10) Obstructive sleep apnea (03/03/11) ?G47.33 - Obstructive sleep apnea (adult) (pediatric) (ICD-10) Sprain of ankle ?S93.409A - Sprain of unspecified ligament of unspecified ankle, initial encounter (ICD-10) Surgical History Status post total left knee replacement (07/14/23) ?Z96.652 - Presence of left artificial knee joint (ICD-10) S/P vasectomy ?Z98.52 - Vasectomy status (ICD-10) Social History Narrative: SOCIAL HISTORY: 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 He is not sexually active. He went back to lifting weights and doing walking over the past month but he admits there was a long period of time where he was not doing these things. Exercises not been great in the last year. He still enjoys woodworking and does quite a bit of this. He has a close friend who has a heated groin space that he has his equipment in. They both enjoy woodworking. HABITS: No tobacco, alcohol, recreational drug use. FAMILY HISTORY: Unchanged. Mother at 85. Father of myocardial infar ction in his 60s. Grandparents with heart problems. Brother with non fatal myocardial infarction in his 40s. He was smoker (cigars), quit 1983. What is your current living situation?: I presently have a place to live Problems where you live: no known problems In the past 12 months, utilities in danger of being shut off: no In past 12 months, lack of transportation kept you from medical appts, meetings, work, or getting things needed for daily living: no In the past 12 mos, have been you worried that your food would run out before you had money to buy more?: never true In the past 12 mos, the food you bought just didn't last and you didn't have money to buy more?: never true Smoking Status: Former smoker What tobacco products do you use: cigars Do you use any of these nicotine containing products: None Second hand tobacco smoke exposure: No How often do you have a drink containing alcohol: never AUDIT-C Alcohol total score: 0 Non-prescribed substance use: denies use Caffeine: Yes How often does anyone, including family, friends and others, physically hurt you : never How often does anyone, including family, friends and others, insult or talk down to you: never How often does anyone, including family, friends and others, threaten you with harm: never How often does anyone, including family, friends and others, scream or curse at you: never Little interest or pleasure in doing things: not at all Feeling down, depressed, or hopeless: not at all Meds Home Medications and Allergies Home Medications ?Medication ?Instructions ?Recorded ?Confirmed ?Type aspirin 81 mg tablet,delayed 81 mg PO QDAY 10/30/21 07/22/23 History release Allergies Allergy/AdvReac Type Severity Reaction Status Date / Time No Known Allergies Allergy Unknown Verified 07/28/23 07:22 Ortho Exam Narrative Exam Narrative: General: Well-developed, well-nourished, A&Ox 3, no apparent acute distress. He is speaking in full complete, and coherent sentences. All faculties appear to be intact. No facial droop or slurred speech. Pulmonary: Breathing pattern regular, even, without apparent distress or audible wheeze present. No accessory muscle use. Left knee and lower extremity: Swelling to the knee and +1 effusion throughout the lower leg anterior tibial and ankle, that is slightly pitting Generalized erythema to the lower leg and knee with heat that is more present than contralateral. Raising his leg above his heart for 25 seconds nearly completely resolved the erythema around the knee with only a small patch of erythema lateral mid periwound, and distal periwound. No significant ecchymosis Wound looks healthy, healing, no dehiscence, no drainage No excessively pain to palpation around the knee PROM 0-35? does not produce any discomfort or crepitus No stability tested Straight leg raise intact Nontender calves bilaterally 2+ DP/PT pulses, pink warm digits with brisk cap refill; intact dermatomes and myotomes distally including the common peroneal, tibial, saphenous, and sural nerve distributions Const Vital Signs, click to edit/add: Vital Signs - 24 hr 07/28/23 07:15 07/28/23 08:19 07/28/23 08:30 Temperature 98.5 F Pulse Rate 76 77 Pulse Rate [Pulse Oximeter] 92 Respiratory Rate 24 Blood Pressure Blood Pressure [Right Upper Arm] 111/62 Pulse Oximetry 92 94 93 Oxygen Delivery Method Room Air 07/28/23 08:41 07/28/23 08:48 07/28/23 09:00 Temperature Pulse Rate 84 86 78 Pulse Rate [Pulse Oximeter] Respiratory Rate Blood Pressure 111/52 L Blood Pressure [Right Upper Arm] Pulse Oximetry 94 90 92 Oxygen Delivery Method 07/28/23 09:02 07/28/23 09:15 07/28/23 09:30 Temperature Pulse Rate 78 79 77 Pulse Rate [Pulse Oximeter] Respiratory Rate Blood Pressure 110/50 L Blood Pressure [Right Upper Arm] Pulse Oximetry 92 96 94 Oxygen Delivery Method 07/28/23 09:45 07/28/23 10:00 07/28/23 10:15 Temperature Pulse Rate 73 76 75 Pulse Rate [Pulse Oximeter] Respiratory Rate Blood Pressure Blood Pressure [Right Upper Arm] Pulse Oximetry 93 93 91 Oxygen Delivery Method 07/28/23 10:30 07/28/23 10:32 07/28/23 10:45 Temperature Pulse Rate 76 78 78 Pulse Rate [Pulse Oximeter] Respiratory Rate Blood Pressure 108/55 L Blood Pressure [Right Upper Arm] Pulse Oximetry 93 92 93 Oxygen Delivery Method 07/28/23 11:00 07/28/23 11:02 07/28/23 11:03 Temperature Pulse Rate 75 76 77 Pulse Rate [Pulse Oximeter] Respiratory Rate Blood Pressure 107/59 L Blood Pressure [Right Upper Arm] Pulse Oximetry 94 94 93 Oxygen Delivery Method 07/28/23 11:15 07/28/23 11:30 07/28/23 11:32 Temperature Pulse Rate 73 72 73 Pulse Rate [Pulse Oximeter] Respiratory Rate Blood Pressure 92/58 L Blood Pressure [Right Upper Arm] Pulse Oximetry 93 94 94 Oxygen Delivery Method 07/28/23 11:45 07/28/23 12:00 07/28/23 12:02 Temperature Pulse Rate 71 70 71 Pulse Rate [Pulse Oximeter] Respiratory Rate Blood Pressure 104/62 Blood Pressure [Right Upper Arm] Pulse Oximetry 95 94 94 Oxygen Delivery Method Results Labs Labs: Laboratory Results - last 48 hr 07/28/23 07/28/23 07/28/23 07:50 08:28 08:45 WBC 8.38 RBC 4.58 Hgb 13.3 L Hct 40.2 MCV 88 MCH 29 MCHC 33 RDW Coeff of Anjali 14.0 Plt Count 335 Neut % (Auto) 91.5 H Lymph % (Auto) 4.4 L [place] % (Auto) 3.3 Eos % (Auto) 0.0 Baso % (Auto) 0.4 Neut # (Auto) 7.70 H Lymph # (Auto) 0.40 L [place] # (Auto) 0.30 Eos # (Auto) 0.00 Baso # (Auto) 0.03 Abs Immat Gran (auto) 0.03 Imm/Tot Granulo (auto) 0.4 VBG pH VBG pCO2 VBG pO2 VBG HCO3 Sodium 132 L Potassium 4.3 Chloride 100 Carbon Dioxide 22 Anion Gap 10 BUN 45 H Creatinine 1.6 H Estimated Creat Clear 48.50 Estimated GFR 47 Glucose 164 H Lactate 2.0 H Calcium 8.4 Total Bilirubin 1.9 H AST 70 H ALT 61 H Alkaline Phosphatase 82 Troponin I < 0.01 L C-Reactive Protein 6.7 H NT-Pro-B Natriuret Pep 268 Total Protein 7.8 Albumin 4.2 Procalcitonin 0.51 H Urine Color Dark yellow Urine Appearance Slightly Cloudy A Urine pH 5.5 Ur Specific [place] 1.015 Urine Protein Negative Urine Glucose (UA) Negative Urine Ketones Negative Urine Blood Negative Urine Nitrite Negative Urine Bilirubin Negative Urine Urobilinogen 1.0 Ur Leukocyte Esterase Negative Urine RBC 0-2 Urine WBC 0-2 Ur Squamous Epith Cells Few Urine Bacteria None SARS-CoV-2 (PCR) Negative SARS-CoV-2 Influenza Type A (PCR) Negative PCR FLU A Influenza Type B (PCR) Negative PCR FLU B RSV (PCR) Negative PCR RSV POC Troponin I 0.01 07/28/23 07/28/23 09:14 10:00 WBC RBC Hgb Hct MCV MCH MCHC RDW Coeff of Anjali Plt Count Neut % (Auto) Lymph % (Auto) [place] % (Auto) Eos % (Auto) Baso % (Auto) Neut # (Auto) Lymph # (Auto) [place] # (Auto) Eos # (Auto) Baso # (Auto) Abs Immat Gran (auto) Imm/Tot Granulo (auto) VBG pH 7.444 H VBG pCO2 34 L VBG pO2 54.6 H VBG HCO3 23 Sodium Potassium Chloride Carbon Dioxide Anion Gap BUN Creatinine Estimated Creat Clear Estimated GFR Glucose Lactate 1.2 Calcium Total Bilirubin AST ALT Alkaline Phosphatase Troponin I C-Reactive Protein NT-Pro-B Natriuret Pep Total Protein Albumin Procalcitonin Urine Color Urine Appearance Urine pH Ur Specific [place] Urine Protein Urine Glucose (UA) Urine Ketones Urine Blood Urine Nitrite Urine Bilirubin Urine Urobilinogen Ur Leukocyte Esterase Urine RBC Urine WBC Ur Squamous Epith Cells Urine Bacteria SARS-CoV-2 (PCR) Influenza Type A (PCR) Influenza Type B (PCR) RSV (PCR) POC Troponin I Assessment and Plan Assessment and plan (1) Status post total left knee replacement: Problem comment: 07/14/23 Dr. Chau Status: Acute Plan We had a thorough discussion with patient and patient's . He is now 2 weeks postop left TKA. My concern for a joint involved infection is low. However, there is some erythema and warmth surrounding the knee and lower leg which could represent early onset of cellulitis. Wound looks healthy without any evidence of breakdown. In the setting of a mildly elevated CRP, increased fatigue over the last week, and this recent transient altered mental status that has since resolved, there appears to be some inflammatory issue present whether that be a local infection such as cellulitis, UTI, etc.. He is having no breathing difficulty or chest discomfort to suggest pulmonary embolism. Nonetheless, I do not see reason to aspirate his knee today. Treatment for possible cellulitis can be guided by ER physician. Encouraged patient to keep moving, perform his PT exercises, manage his knee pain with oral medications, ice, elevation, compression, and report back with any worsening symptoms such as increased redness to the left lower leg, stiffness or pain with knee motion, fevers, chills, or increased feelings of fatigue. He should also return to the ER if experiencing difficulty breathing, shortness of breath, chest discomfort heaviness, confusion, slurred speech, aphasia. He is instructed to follow-up with his primary care provider soon. We will also schedule for him to see Dr. Chau this week for postop check.
== END 2023-07-28 12:22 | disposition home or self-care (01) ==
PROVIDERS: Family Medicine; Emergency Provider Family Medicine; PCP Family Medicine
DX: L03.116 Cellulitis of left lower limb (principal); R41.82 Altered mental status, unspecified; E86.0 Dehydration
CPT/HCPCS: 36415; 70450; 71045; 80053; 81001; 81003; 82803; 83605; 83880; 84145; 84484; 85025; 86140; 87040; 87631; 93005; 96365; 99284; 99285; J0696; J7030; J7120

== ENCOUNTER 2023-09-15 10:45 | Outpatient (RCR) | payer MEDICARE, BC, SELFPAY ==
--- NOTE | 2023-07-06 13:24 | PT.OPEX ---
PT [place] Outpatient Eval PT [facility] Outpatient Eval Start: 07/06/23 07:57 Freq: Status: Active Protocol: Document 07/06/23 07:58 AMS (Rec: 07/06/23 13:16 AMS [id number]) E-signed By Betzaida Kulkarni PT Physical Therapy Outpatient Evaluation Insurance Information Recert Due Date 09/29/23 Insurance Name Medicare B,Blue Cross/Blue Shield Medical Diagnosis Left total knee replacement Presence of left artificial knee joint Treating Diagnosis Aftercare following joint replacement Left knee pain/stiffness Muscle weakness Difficulty walking Subjective Subjective Indra is a new patient in my office today. He is a pleasant 67yr old male. Referred to me by Dr. Hermosillo. Presents with left knee pain. He reports medial and lateral pain in the knee for the past 20 years. He awakes in the morning with stiffness that gets better with activity. He is unable to walk more than 20 yd because of knee pain. He recently started Celebrex which has been helpful. He has never had an injection and has never had surgery on his knee. He has diet-controlled diabetes, does not smoke cigarettes and is not on blood thinners. 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 -Dr. Chau, 04/27/23, confirmed by pt Patient reports for pre-op physical therapy appointment prior to left total knee arthroplasty scheduled for . States it has been getting worse the last year or so, but present for many years. Also has painful clicking with movement. Has given up walking/golf due to pain. * home set up: Please see pre- op note for complete home set up. Lives in a rambler home with his spouse, does have basement. Does not need to go down to basement for any reason. Has 3 stairs to enter the home with no railing. * stairs, shower, main level: Please see pre-op note. * equipment: Owns SEC, does not own FWW. Does not use any AD at baseline. * caregiver assistance: Spouse is available 24-7 following surgery to assist as needed. 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 ER mildly limited L. Strength: Hip flexors: R 4+/5 R 4+/5 Knee extensors: R 4+/5 L 4+/5 Knee flexors: R 4+/5 L 4+/5 Gait/balance: Ambulates with moderately antalgic gait on L. Palpation/joint mobility: No tenderness to palpation over medial or lateral joint line, patella, tibial tuberosity, or quad tendon. Swelling/observation: No visible swelling. Functional Test Performed & Score LEFS: not today Assessment Assessment/Impression Patient is a 67 year old male presenting for pre-operative visit prior to left total knee arthroplasty scheduled for . Upon assessment, patient demonstrates decreased knee ROM, decreased hip/quad strength, and antalgic gait pattern. These impairments lead to difficulties with walking more than 20 yds, standing, squatting, golfing, standing up from a chair, and stairs. Patient will be seen post operatively to reassess impairments that will be addressed with skilled care. Indra would greatly benefit from skilled PT in order to progress strength, ROM, and ambulation post operatively in order to perform all household and work duties without significant difficulty or discomfort. Primary Functional Limitations walking more than 20 yds, standing, squatting, golfing, standing up from a chair, and stairs, bending Plan of Care Rehabilitation Potential Good Physical Therapy Goals After pre-op visit: ? Patient will be independent with HEP ? Patient will verbalize knowledge of stair navigation and proper sequencing ? Patient will have knowledge on home adaptations and use of assistive devices post operatively ? Patient will have knowledge of edema management MET Coordination/Communication With Referral Source Treatment Plan/Direct Interventions Gait Training,Ice/Cold/ Vasopneumatic,Joint Mobilization,Manual Therapy, Neuromuscular Re-ed,Self-Care/ Home Management,Therapeutic Activities,Therapeutic Exercises Frequency/Duration 1x visit prior to surgery on . Patient scheduled to start outpatient PT s/p TKA on 07/16/23 with frequency of 2x/ week for 4 weeks, then 1x/week for 6-8 more weeks. Has HEP to start with pre-operatively. Patient Will Be Discharged From Therapy Completion of LTG(s), Independent w/HEP, Independently Progressing Evaluation Billing Untimed Code Treatment Minutes 15 Complexity Low Certification Information Initial Certification Date 07/06/23 Ending Certification Date 09/29/23 Provider Signature Shows Agreement With POC & Medical Necessity Physician Signature & Date Requested Please Sign/Date Here Physician Comment/Change : Physician NPI Number #
== END 2024-01-13 23:59 | disposition home or self-care (01) ==
PROVIDERS: PCP Family Medicine; Visit Provider Orthopaedic Surgery Sports Medicine
DX: M17.12 Unilateral primary osteoarthritis, left knee (principal); Z51.89 Encounter for other specified aftercare
CPT/HCPCS: 80053; 86140; 97110; 97140; 97161; 97164

== ENCOUNTER 2024-05-23 07:55 | Outpatient (CLI) | payer MEDICARE, BC, SELFPAY | END 2024-05-23 07:56 | disposition home or self-care (01) | LOC: NFLDREF 22:19 | PROVIDERS: PCP Family Medicine; Referring Provider Family Medicine; Visit Provider Family Medicine | DX: E11.9 Type 2 diabetes mellitus without complications (principal); I10 Essential (primary) hypertension; Z85.46 Personal history of malignant neoplasm of prostate; Z13.220 Encounter for screening for lipoid disorders; Z12.5 Encounter for screening for malignant neoplasm of prostate | CPT/HCPCS: 80053; 80061; 82043; 82570; G0103 ==

== ENCOUNTER 2025-02-22 09:48 | Outpatient (CLI) | payer MEDICARE, BC, SELFPAY ==
--- NOTE | 2025-02-22 10:30 | CRLHL7_ITS ---
For Patients: As a result of the Century Cures Act, medical imaging exams and procedure reports are released immediately into your electronic medical record. You may view this report before your referring provider. If you have questions, please contact your health care provider. Indication: Cellulitis of right hand, pain and swelling Technique: Noncontrast CT right hand Please note that all CT scans at this facility use dose modulation, iterative reconstruction, and/or weight-based dosing when appropriate to reduce radiation dose to as low as reasonably achievable. Comparison: X-rays 12/28/2024 Findings: Radiopaque foreign bodies in the soft tissues about the index finger at the level of the proximal phalanx, radial aspect, noted measuring up to 4.4 millimeters. Chronic dystrophic calcification associated with the flexor tendons involving the long finger at the level of the proximal phalanx. Subcutaneous edema within the volar subcutaneous fat at the level of the distal carpus/proximal metacarpals. No fluid collection or abscess. No osteomyelitis or fracture. Degenerative joint disease. No erosive arthropathy. Impression: Subcutaneous edema without drainable fluid collection or abscess. No soft tissue gas or osteomyelitis. Chronic radiodense foreign body in the index finger. 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 Please note that all CT scans at this facility use dose modulation, iterative reconstruction, and/or weight-based dosing when appropriate to reduce radiation dose to as low as reasonably achievable. Dictated by Pedro Pablo Andrade MD @ 02/22/2025 10:47:58 AM (Electronically Signed)
== END 2025-02-22 09:49 | disposition home or self-care (01) ==
LOC: CT 09:53
PROVIDERS: PCP Family Medicine; Visit Provider Family Medicine
DX: L03.115 Cellulitis of right lower limb (principal); R22.31 Localized swelling, mass and lump, right upper limb
CPT/HCPCS: 73200